=== PATIENT | female | born 1950 | race Caucasian/White ===

== ENCOUNTER 2018-04-27 07:16 | Emergency (ER) | payer MEDICARE, MEDICAID, OTHER ==
[~2018-04-27] VITALS: Ht 165.1 cm; Wt 119.0 kg
[~2018-04-27 07:16] MED LIST: ASPI-1158 PO; COR25 PO; FLOV44 IH; FLUT60LO3 TP; LANTUS SQ; NOVOLOG; OMEP20CA10 PO; SIMVASTATIN PO
[2018-04-27] MEDS ORDERED: FURO40TA5 PO (07:32)
[2018-04-27] MEDS ORDERED: HYDR12.529 PO (07:32)
[2018-04-27] MEDS ORDERED: CEFU500T41 PO (07:32)
[2018-04-27] MEDS ORDERED: BENZ200C52 PO (07:32)
[2018-04-27] MEDS ORDERED: TAP5 PO (07:32)
[2018-04-27] MEDS ORDERED: FLOV11 IH (07:32)
[2018-04-27] MEDS ORDERED: TOLT2TAB2 PO (07:32)
[2018-04-27] MEDS ORDERED: MONT10TA24 PO (07:32)
[2018-04-27] MEDS ORDERED: LOSA100T14 PO (07:32)
[2018-04-27] MEDS ORDERED: DESI25TA16 PO (07:32)
[2018-04-27 08:23] LABS: BASOPHILS % 0.6 % (0.0-2.0); EOSINOPHILS % 1.8 % (0.0-5.0); HEMATOCRIT. 36.3 % (36.0-48.0); LYMPHOCYTES % 20.2 % (20.0-50.0); MEAN CORPUSCULAR HEMOGLOBIN 27.6 pg (28.0-32.0); MEAN CORPUSCULAR VOLUME 83.3 fL (81.0-99.0); MEAN PLATELET VOLUME 7.3 fl (7.4-10.4); MONOCYTES % 11.7 % (2.0-8.0); NEUTROPHILS % 65.7 % (40.0-76.0); PLATELET 236 x1000/uL (130-400); RED BLOOD CELL COUNT 4.37 mill/uL (4.2-5.4); RED CELL DISTRIBUTION WIDTH 14.9 % (11.6-14.6)
[2018-04-27 08:27] LABS: CLARITY URINE CLEAR (CLEAR); COLOR URINE YELLOW (YELLOW); KETONES URINE NEGATIVE (NEGATIVE); LEUKOCYTE ESTERASE URINE TRACE (NEGATIVE); NITRITE URINE NEGATIVE (NEGATIVE); OCCULT BLOOD URINE NEGATIVE (NEGATIVE); PROTEIN URINE NEGATIVE (NEGATIVE); SPECIFIC GRAVITY URINE 1.004 (1.005-1.030); UROBILINOGEN URINE 0.2 E.U./dL (0.2-1.0)
[2018-04-27 08:29] LABS: CHLORIDE 96 mEq/L (98-107)
[2018-04-27] MEDS ORDERED: KETOROLAC 30MG/ML VIAL IV ONE (08:30)
[2018-04-27] MEDS ORDERED: TRAMADOL 50MG TABLET PO ONE (08:30)
[2018-04-27 12:48] VITALS: BP 156/73
== END 2018-04-27 13:01 | disposition home or self-care (01) ==
LOC: ER 07:36
DX: R10.12 Left upper quadrant pain (principal); I11.0 Hypertensive heart disease with heart failure; I50.9 Heart failure, unspecified; I25.2 Old myocardial infarction; E11.9 Type 2 diabetes mellitus without complications; J45.909 Unspecified asthma, uncomplicated; E78.00 Pure hypercholesterolemia, unspecified; N28.9 Disorder of kidney and ureter, unspecified; E05.90 Thyrotoxicosis, unspecified without thyrotoxic crisis or storm; H40.9 Unspecified glaucoma; R16.0 Hepatomegaly, not elsewhere classified; E87.1 Hypo-osmolality and hyponatremia; Z88.1 Allergy status to other antibiotic agents; Z88.0 Allergy status to penicillin; Z88.6 Allergy status to analgesic agent; Z79.899 Other long term (current) drug therapy; Z90.49 Acquired absence of other specified parts of digestive tract; Z98.890 Other specified postprocedural states
CPT/HCPCS: 36415; 71045; 80053; 81003; 83690; 84484; 85025; 93005; 96374; 99285; J1885

== ENCOUNTER 2018-10-25 12:08 | Emergency (ER) | payer MEDICARE, MEDICAID, OTHER ==
[~2018-10-25] VITALS: Ht 165.1 cm; Wt 110.0 kg
[~2018-10-25 12:08] MED LIST changes: +BENZ200C52 PO; +CEFU500T41 PO; +DESI25TA16 PO; +FLOV11 IH; +FURO40TA5 PO; +HYDR12.529 PO; +LOSA100T14 PO; +MONT10TA24 PO; +TAP5 PO; +TOLT2TAB2 PO
[2018-10-25 12:18] VITALS: BP 139/53
== END 2018-10-25 15:48 | disposition left against medical advice (07) ==
LOC: ER 12:56
DX: Z53.21 Procedure and treatment not carried out due to patient leaving prior to being seen by health care provider (principal); E11.9 Type 2 diabetes mellitus without complications; E78.00 Pure hypercholesterolemia, unspecified; I10 Essential (primary) hypertension; Z88.0 Allergy status to penicillin; Z88.1 Allergy status to other antibiotic agents; Z88.3 Allergy status to other anti-infective agents; Z88.8 Allergy status to other drugs, medicaments and biological substances; Z90.49 Acquired absence of other specified parts of digestive tract
CPT/HCPCS: 82962

== ENCOUNTER 2020-12-07 15:36 | Inpatient (IN) | payer MEDICARE, MEDICAID ==
[~2020-12-07] VITALS: Ht 162.6 cm; Wt 118.0 kg
[2020-12-07 15:36] VITALS: BP 138/69
[~2020-12-07 15:36] MED LIST changes: -ASPI-1158 PO; +ASPI-1406 PO; -BENZ200C52 PO; -CEFU500T41 PO; -COR25 PO; +COR6 PO; -DESI25TA16 PO; +FLONASE BOTHNSTRLS; -FLOV11 IH; -FLUT60LO3 TP; +FURO20TA4 PO; -FURO40TA5 PO; -LANTUS SQ; -LOSA100T14 PO; -MONT10TA24 PO; +MONT10TA32 MT; -NOVOLOG; -OMEP20CA10 PO; +OMEP20CA14 PO; +SIMV-43 PO; -SIMVASTATIN PO; -TAP5 PO; -TOLT2TAB2 PO
[2020-12-07 16:00] VITALS: BP 138/69
[2020-12-07] MEDS ORDERED: DEXTROSE 50% WATER 50ML SYRINGE IV PRN (17:00)
[2020-12-07] MEDS ORDERED: CLONIDINE 0.1MG TABLET PO PRN (17:00)
[2020-12-07] MEDS ORDERED: MAGNESIUM/ALUMINUM HYDROXIDE/SIMETHICONE 30ML UDC PO PRN (17:00)
[2020-12-07] MEDS ORDERED: HYDROCODONE/ACETAMINOPHEN 10/325MG TABLET PO PRN ×2 (17:00)
[2020-12-07] MEDS ORDERED: DOCUSATE SODIUM 100MG CAPSULE PO PRN (17:00)
[2020-12-07] MEDS ORDERED: ACETAMINOPHEN 325MG TABLET PO PRN ×2 (17:00)
[2020-12-07] MEDS ORDERED: NITROGLYCERIN 0.4MG TABLET SL SL PRN (17:00)
[2020-12-07] MEDS ORDERED: ONDANSETRON HCL 4MG/2ML INJ IV PRN (17:00)
[2020-12-07] MEDS: INSULIN LISPRO 100 UNITS/ML SUBCUT SCH ×2 (17:30→21:24)
[2020-12-07] MEDS: BLOOD SUGAR DIAGNOSTIC STRIP TEST SCH ×2 (17:30→21:13)
[2020-12-07] MEDS ORDERED: LEVOFLOXACIN 500MG PREMIX 100 ML IV SCH (18:00)
[2020-12-07] MEDS: GUAIFENESIN 200MG/10ML SUGAR FREE UDC PO PRN ×2 (18:41→23:58)
[2020-12-07 20:00] VITALS: BP 133/46
[2020-12-07] MEDS: ATORVASTATIN CALCIUM 20MG TABLET PO SCH (21:11)
[2020-12-07] MEDS: FAMOTIDINE 20MG TABLET PO SCH (21:12)
[2020-12-07] MEDS: ASCORBIC ACID 500 MG TABLET PO SCH (21:12)
[2020-12-07] MEDS: CARVEDILOL 12.5MG TABLET PO SCH (21:12)
[2020-12-07] MEDS: ENOXAPARIN 30MG/0.3ML SYR SUBCUT SCH (21:22)
[2020-12-08] MEDS: BLOOD SUGAR DIAGNOSTIC STRIP TEST SCH ×4 (06:04→20:06)
[2020-12-08] MEDS: INSULIN LISPRO 100 UNITS/ML SUBCUT SCH ×4 (06:11→21:08)
[2020-12-08 06:30] LABS: BASOPHILS % 0.4 % (0.0-2.0); EOSINOPHILS % 4.5 % (0.0-5.0); HEMATOCRIT. 32.8 % (36.0-48.0); HEMOGLOBIN. 11.2 g/dL (12.0-16.0); LYMPHOCYTES % 31.9 % (20.0-50.0); MEAN CORPUSCULAR HEMOGLOBIN 28.1 pg (28.0-32.0); MEAN CORPUSCULAR VOLUME 82.5 fL (81.0-99.0); MEAN PLATELET VOLUME 7.3 fl (7.4-10.4); MONOCYTES % 10.8 % (2.0-8.0); NEUTROPHILS % 52.4 % (40.0-76.0); PLATELET 179 x1000/uL (130-400); RED BLOOD CELL COUNT 3.97 mill/uL (4.2-5.4); RED CELL DISTRIBUTION WIDTH 15.1 % (11.6-14.6)
[2020-12-08 06:42] LABS: CHLORIDE 105 mEq/L (98-107)
[2020-12-08 08:11] VITALS: BP 158/71
[2020-12-08] MEDS: ASCORBIC ACID 500 MG TABLET PO SCH ×2 (08:49→20:03)
[2020-12-08] MEDS: ASPIRIN 325MG EC TABLET PO SCH (08:49)
[2020-12-08] MEDS: CARVEDILOL 12.5MG TABLET PO SCH ×2 (08:50→20:03)
[2020-12-08] MEDS: ZINC SULFATE 220 MG ( 50 ) CAPSULE PO SCH (08:51)
[2020-12-08] MEDS: FAMOTIDINE 20MG TABLET PO SCH ×2 (08:51→20:03)
[2020-12-08] MEDS: CHOLECALCIFEROL (D3) 1000 UNIT TABLET PO SCH (08:51)
[2020-12-08] MEDS: ENOXAPARIN 30MG/0.3ML SYR SUBCUT SCH ×2 (08:56→21:08)
[2020-12-08] MEDS: LIDOCAINE 5% PATCH TOP SCH (08:57)
[2020-12-08] MEDS: DOCUSATE SODIUM 100MG CAPSULE PO SCH ×2 (08:58→09:41)
[2020-12-08] MEDS: TRAMADOL 50MG TABLET PO PRN (11:42)
[2020-12-08] MEDS ORDERED: MAGNESIUM/ALUMINUM HYDROXIDE/SIMETHICONE 30ML UDC PO PRN (12:45)
[2020-12-08] MEDS ORDERED: HYDROCODONE/ACETAMINOPHEN 10/325MG TABLET PO PRN (12:45)
[2020-12-08] MEDS ORDERED: ACETAMINOPHEN 325MG TABLET PO PRN (12:45)
[2020-12-08] MEDS: HYDROCODONE/ACETAMINOPHEN 10/325MG TABLET PO PRN (13:46)
[2020-12-08] MEDS ORDERED: BISACODYL 10MG SUPP PR PRN (18:45)
[2020-12-08 20:00] VITALS: BP 141/65
[2020-12-08] MEDS: ATORVASTATIN CALCIUM 20MG TABLET PO SCH (20:03)
[2020-12-08] MEDS: ACETAMINOPHEN 325MG TABLET PO PRN (20:04)
[2020-12-08] MEDS: GUAIFENESIN 200MG/10ML SUGAR FREE UDC PO PRN (21:08)
[2020-12-08] MEDS ORDERED: LACTULOSE 20G/30ML UDC PO SCH (22:00)
[2020-12-08] MEDS: ZOLPIDEM TARTRATE 5MG TABLET PO PRN (23:23)
[2020-12-09] MEDS: GUAIFENESIN 200MG/10ML SUGAR FREE UDC PO PRN ×2 (05:25→09:40)
[2020-12-09] MEDS: BLOOD SUGAR DIAGNOSTIC STRIP TEST SCH ×4 (05:45→20:35)
[2020-12-09] MEDS: INSULIN LISPRO 100 UNITS/ML SUBCUT SCH ×4 (06:35→21:52)
[2020-12-09 08:00] VITALS: BP 114/44
[2020-12-09] MEDS: CHOLECALCIFEROL (D3) 1000 UNIT TABLET PO SCH (09:25)
[2020-12-09] MEDS: FAMOTIDINE 20MG TABLET PO SCH ×2 (09:26→20:35)
[2020-12-09] MEDS: ZINC SULFATE 220 MG ( 50 ) CAPSULE PO SCH (09:26)
[2020-12-09] MEDS: CARVEDILOL 12.5MG TABLET PO SCH ×2 (09:26→20:35)
[2020-12-09] MEDS: DOCUSATE SODIUM 100MG CAPSULE PO SCH (09:26)
[2020-12-09] MEDS: ASCORBIC ACID 500 MG TABLET PO SCH (09:26)
[2020-12-09] MEDS: ASPIRIN 325MG EC TABLET PO SCH (09:26)
[2020-12-09] MEDS: ENOXAPARIN 30MG/0.3ML SYR SUBCUT SCH ×2 (09:27→20:36)
[2020-12-09] MEDS: LIDOCAINE 5% PATCH TOP SCH (09:28)
[2020-12-09] MEDS: TRAMADOL 50MG TABLET PO PRN (12:35)
[2020-12-09 12:44] LABS: BASOPHILS % 0.6 % (0.0-2.0); EOSINOPHILS % 3.8 % (0.0-5.0); HEMATOCRIT. 33.3 % (36.0-48.0); HEMOGLOBIN. 11.2 g/dL (12.0-16.0); MEAN CORPUSCULAR HEMOGLOBIN 27.7 pg (28.0-32.0); MEAN CORPUSCULAR VOLUME 82.8 fL (81.0-99.0); MEAN PLATELET VOLUME 6.8 fl (7.4-10.4); MONOCYTES % 11.1 % (2.0-8.0); NEUTROPHILS % 56.5 % (40.0-76.0); PLATELET 190 x1000/uL (130-400); RED BLOOD CELL COUNT 4.03 mill/uL (4.2-5.4); RED CELL DISTRIBUTION WIDTH 15.1 % (11.6-14.6)
[2020-12-09 12:56] LABS: CHLORIDE 104 mEq/L (98-107)
[2020-12-09 13:05] LABS: LDL CHOLESTEROL 30 mg/dL (5-100); TOTAL IRON BINDING CAPACITY 328 ug/dL (250-450)
[2020-12-09 13:07] LABS: HDL CHOLESTEROL 35 mg/dL (40-59)
[2020-12-09 13:17] LABS: FERRITIN 93 ng/mL (10-291)
[2020-12-09 13:18] LABS: FOLIC ACID (FOLATE) SERUM >20 ng/mL ng/mL (>5.38)
[2020-12-09 13:30] LABS: VITAMIN B12 SERUM 881 pg/mL (211-911)
[2020-12-09] MEDS: FERROUS SULFATE 325MG TABLET PO SCH (17:39)
[2020-12-09 20:00] VITALS: BP 166/75
[2020-12-09] MEDS: ATORVASTATIN CALCIUM 20MG TABLET PO SCH (20:35)
[2020-12-09 21:23] VITALS: BP 146/71
[2020-12-09] MEDS: HYDROCODONE/ACETAMINOPHEN 10/325MG TABLET PO PRN (21:23)
[2020-12-09] MEDS: ZOLPIDEM TARTRATE 5MG TABLET PO PRN (22:11)
[2020-12-10] MEDS: BLOOD SUGAR DIAGNOSTIC STRIP TEST SCH ×4 (05:58→20:22)
[2020-12-10] MEDS: INSULIN LISPRO 100 UNITS/ML SUBCUT SCH ×4 (05:58→21:09)
[2020-12-10 07:32] LABS: T4 FREE 1.76 ng/dL (0.76-1.46)
[2020-12-10 08:00] VITALS: BP 166/76
[2020-12-10] MEDS: DOCUSATE SODIUM 100MG CAPSULE PO SCH ×2 (09:30→10:39)
[2020-12-10] MEDS: CARVEDILOL 12.5MG TABLET PO SCH ×2 (09:31→20:21)
[2020-12-10] MEDS: HYDROCODONE/ACETAMINOPHEN 10/325MG TABLET PO PRN ×3 (09:34→20:23)
[2020-12-10] MEDS: ZINC SULFATE 220 MG ( 50 ) CAPSULE PO SCH (09:36)
[2020-12-10] MEDS: FERROUS SULFATE 325MG TABLET PO SCH ×3 (09:36→17:42)
[2020-12-10] MEDS: FAMOTIDINE 20MG TABLET PO SCH ×2 (09:37→20:21)
[2020-12-10] MEDS: ASCORBIC ACID 500 MG TABLET PO SCH (09:37)
[2020-12-10] MEDS: ENOXAPARIN 30MG/0.3ML SYR SUBCUT SCH ×2 (09:38→20:22)
[2020-12-10] MEDS: CHOLECALCIFEROL (D3) 1000 UNIT TABLET PO SCH (09:38)
[2020-12-10] MEDS: LIDOCAINE 5% PATCH TOP SCH (09:44)
[2020-12-10] MEDS: ASPIRIN 325MG EC TABLET PO SCH (09:45)
[2020-12-10] MEDS: SENNOSIDES/DOCUSATE SOD 8.6/50MG TABLET PO PRN (10:38)
[2020-12-10] MEDS ORDERED: NALOXONE HCL 0.4 MG/ML 1ML VIAL IV PRN (10:45)
[2020-12-10] MEDS: TRAMADOL 50MG TABLET PO PRN (10:52)
[2020-12-10] MEDS: MORPHINE SULFATE 15MG TABLET SR PO SCH ×2 (14:25→22:48)
[2020-12-10 20:00] VITALS: BP 147/62
[2020-12-10] MEDS: ATORVASTATIN CALCIUM 20MG TABLET PO SCH (20:21)
[2020-12-10] MEDS: GUAIFENESIN-DM 200MG-20MG/10ML UDC PO PRN (20:24)
[2020-12-10 22:45] VITALS: BP 133/63
[2020-12-10] MEDS: ZOLPIDEM TARTRATE 5MG TABLET PO PRN (22:47)
[2020-12-11] MEDS: BLOOD SUGAR DIAGNOSTIC STRIP TEST SCH ×4 (05:51→21:00)
[2020-12-11] MEDS: INSULIN LISPRO 100 UNITS/ML SUBCUT SCH ×4 (05:54→21:00)
[2020-12-11 08:08] VITALS: BP 136/60
[2020-12-11] MEDS: ASPIRIN 325MG EC TABLET PO SCH (09:33)
[2020-12-11] MEDS: FERROUS SULFATE 325MG TABLET PO SCH ×3 (09:33→17:00)
[2020-12-11] MEDS: ZINC SULFATE 220 MG ( 50 ) CAPSULE PO SCH (09:35)
[2020-12-11] MEDS: MORPHINE SULFATE 15MG TABLET SR PO SCH ×2 (09:35→21:00)
[2020-12-11] MEDS: FAMOTIDINE 20MG TABLET PO SCH ×2 (09:36→21:00)
[2020-12-11] MEDS: CHOLECALCIFEROL (D3) 1000 UNIT TABLET PO SCH (09:36)
[2020-12-11] MEDS: ASCORBIC ACID 500 MG TABLET PO SCH (09:36)
[2020-12-11] MEDS: ENOXAPARIN 30MG/0.3ML SYR SUBCUT SCH ×2 (09:37→21:00)
[2020-12-11] MEDS: LIDOCAINE 5% PATCH TOP SCH (09:40)
[2020-12-11] MEDS: SENNOSIDES/DOCUSATE SOD 8.6/50MG TABLET PO PRN (09:41)
[2020-12-11] MEDS: CARVEDILOL 12.5MG TABLET PO SCH ×2 (09:54→20:31)
[2020-12-11] MEDS: TRAMADOL 50MG TABLET PO PRN (15:44)
[2020-12-11 20:00] VITALS: BP 136/76
[2020-12-11] MEDS: ATORVASTATIN CALCIUM 20MG TABLET PO SCH (20:30)
[2020-12-11] MEDS: ZOLPIDEM TARTRATE 5MG TABLET PO PRN (22:55)
[2020-12-11] MEDS: GUAIFENESIN-DM 200MG-20MG/10ML UDC PO PRN (22:55)
[2020-12-12] MEDS: BLOOD SUGAR DIAGNOSTIC STRIP TEST SCH ×4 (06:30→20:59)
[2020-12-12] MEDS: INSULIN LISPRO 100 UNITS/ML SUBCUT SCH ×4 (07:13→20:59)
[2020-12-12 08:00] VITALS: BP 126/56
[2020-12-12] MEDS: ASCORBIC ACID 500 MG TABLET PO SCH (08:56)
[2020-12-12] MEDS: ZINC SULFATE 220 MG ( 50 ) CAPSULE PO SCH (08:57)
[2020-12-12] MEDS: MORPHINE SULFATE 15MG TABLET SR PO SCH ×2 (08:57→20:57)
[2020-12-12] MEDS: ASPIRIN 325MG EC TABLET PO SCH (08:58)
[2020-12-12] MEDS: FERROUS SULFATE 325MG TABLET PO SCH ×3 (08:58→17:13)
[2020-12-12] MEDS: CHOLECALCIFEROL (D3) 1000 UNIT TABLET PO SCH (08:58)
[2020-12-12] MEDS: DOCUSATE SODIUM 100MG CAPSULE PO SCH ×2 (08:58→17:13)
[2020-12-12] MEDS: CARVEDILOL 12.5MG TABLET PO SCH ×2 (08:59→20:58)
[2020-12-12] MEDS: LIDOCAINE 5% PATCH TOP SCH (09:00)
[2020-12-12] MEDS: ENOXAPARIN 30MG/0.3ML SYR SUBCUT SCH ×2 (09:01→20:56)
[2020-12-12] MEDS: FAMOTIDINE 20MG TABLET PO SCH ×2 (09:11→20:56)
[2020-12-12 09:17] LABS: BASOPHILS % 0.7 % (0.0-2.0); EOSINOPHILS % 5.6 % (0.0-5.0); HEMATOCRIT. 35.5 % (36.0-48.0); HEMOGLOBIN. 11.5 g/dL (12.0-16.0); LYMPHOCYTES % 35.3 % (20.0-50.0); MEAN CORPUSCULAR HEMOGLOBIN 27.2 pg (28.0-32.0); MEAN PLATELET VOLUME 7.9 fl (7.4-10.4); NEUTROPHILS % 46.4 % (40.0-76.0); PLATELET 204 x1000/uL (130-400); RED BLOOD CELL COUNT 4.23 mill/uL (4.2-5.4); RED CELL DISTRIBUTION WIDTH 15.4 % (11.6-14.6)
[2020-12-12 09:24] LABS: CHLORIDE 102 mEq/L (98-107)
[2020-12-12] MEDS: ACETAMINOPHEN 325MG TABLET PO PRN (10:40)
[2020-12-12] MEDS: LACTULOSE 20G/30ML UDC PO SCH ×2 (17:18→20:56)
[2020-12-12 20:00] VITALS: BP 148/71
[2020-12-12] MEDS: ATORVASTATIN CALCIUM 20MG TABLET PO SCH (20:56)
[2020-12-12] MEDS: POLYETHYLENE GLYCOL 3350 (17GM) 1 DOSE PACK PO SCH (20:57)
[2020-12-12] MEDS: GUAIFENESIN-DM 200MG-20MG/10ML UDC PO PRN (22:17)
[2020-12-12] MEDS: ZOLPIDEM TARTRATE 5MG TABLET PO PRN (22:17)
[2020-12-13] MEDS: BLOOD SUGAR DIAGNOSTIC STRIP TEST SCH ×4 (06:59→20:55)
[2020-12-13 07:36] VITALS: BP 114/47
[2020-12-13] MEDS: FERROUS SULFATE 325MG TABLET PO SCH ×3 (08:55→16:19)
[2020-12-13] MEDS: ASPIRIN 325MG EC TABLET PO SCH (08:55)
[2020-12-13] MEDS: LACTULOSE 20G/30ML UDC PO SCH (08:55)
[2020-12-13] MEDS: DOCUSATE SODIUM 100MG CAPSULE PO SCH ×2 (08:56→16:19)
[2020-12-13] MEDS: CHOLECALCIFEROL (D3) 1000 UNIT TABLET PO SCH (08:56)
[2020-12-13] MEDS: FAMOTIDINE 20MG TABLET PO SCH ×2 (08:57→20:42)
[2020-12-13] MEDS: CARVEDILOL 12.5MG TABLET PO SCH ×2 (08:57→20:46)
[2020-12-13] MEDS: ZINC SULFATE 220 MG ( 50 ) CAPSULE PO SCH (08:57)
[2020-12-13] MEDS: ASCORBIC ACID 500 MG TABLET PO SCH (08:57)
[2020-12-13] MEDS: MORPHINE SULFATE 15MG TABLET SR PO SCH ×2 (08:57→20:43)
[2020-12-13] MEDS: LIDOCAINE 5% PATCH TOP SCH (08:58)
[2020-12-13] MEDS: ENOXAPARIN 30MG/0.3ML SYR SUBCUT SCH ×2 (08:58→20:52)
[2020-12-13] MEDS: INSULIN LISPRO 100 UNITS/ML SUBCUT SCH ×4 (09:00→20:54)
[2020-12-13] MEDS ORDERED: THROAT LOZENGES-BENZOCAINE/MENTH/CETYLPYRD CL LOZENGES MM PRN (15:30)
[2020-12-13 17:06] LABS: 25-HYDROXY VITAMIN D3 19 ng/mL (.)
[2020-12-13 20:00] VITALS: BP 153/72
[2020-12-13] MEDS: ATORVASTATIN CALCIUM 20MG TABLET PO SCH (20:46)
[2020-12-13] MEDS: POLYETHYLENE GLYCOL 3350 (17GM) 1 DOSE PACK PO SCH (20:48)
[2020-12-13] MEDS: ZOLPIDEM TARTRATE 5MG TABLET PO PRN (21:55)
[2020-12-14] MEDS: BLOOD SUGAR DIAGNOSTIC STRIP TEST SCH ×4 (06:21→20:42)
[2020-12-14] MEDS: ASCORBIC ACID 500 MG TABLET PO SCH (08:02)
[2020-12-14] MEDS: FAMOTIDINE 20MG TABLET PO SCH ×2 (08:02→20:19)
[2020-12-14] MEDS: ASPIRIN 325MG EC TABLET PO SCH (08:02)
[2020-12-14] MEDS: FERROUS SULFATE 325MG TABLET PO SCH ×3 (08:02→17:00)
[2020-12-14] MEDS: CHOLECALCIFEROL (D3) 1000 UNIT TABLET PO SCH (08:02)
[2020-12-14] MEDS: DOCUSATE SODIUM 100MG CAPSULE PO SCH ×2 (08:02→17:00)
[2020-12-14] MEDS: ZINC SULFATE 220 MG ( 50 ) CAPSULE PO SCH (08:02)
[2020-12-14] MEDS: MORPHINE SULFATE 15MG TABLET SR PO SCH ×2 (08:03→20:18)
[2020-12-14] MEDS: CARVEDILOL 12.5MG TABLET PO SCH ×2 (08:04→20:20)
[2020-12-14] MEDS: ENOXAPARIN 30MG/0.3ML SYR SUBCUT SCH ×2 (08:05→20:50)
[2020-12-14] MEDS: LIDOCAINE 5% PATCH TOP SCH (08:05)
[2020-12-14] MEDS: INSULIN LISPRO 100 UNITS/ML SUBCUT SCH ×7 (08:06→20:40)
[2020-12-14 08:07] VITALS: BP 154/73
[2020-12-14] MEDS ORDERED: INSULIN LISPRO 100 UNITS/ML SUBCUT SCH (08:15)
[2020-12-14 20:00] VITALS: BP 147/73
[2020-12-14] MEDS: ATORVASTATIN CALCIUM 20MG TABLET PO SCH (20:17)
[2020-12-14] MEDS: ZOLPIDEM TARTRATE 5MG TABLET PO PRN (20:19)
[2020-12-14] MEDS: POLYETHYLENE GLYCOL 3350 (17GM) 1 DOSE PACK PO SCH (20:20)
[2020-12-15] MEDS: BLOOD SUGAR DIAGNOSTIC STRIP TEST SCH ×4 (06:30→20:10)
[2020-12-15] MEDS: INSULIN LISPRO 100 UNITS/ML SUBCUT SCH ×7 (07:55→21:12)
[2020-12-15 08:00] VITALS: BP 138/77
[2020-12-15] MEDS: ENOXAPARIN 30MG/0.3ML SYR SUBCUT SCH ×2 (08:37→20:07)
[2020-12-15] MEDS: DOCUSATE SODIUM 100MG CAPSULE PO SCH ×2 (08:38→16:32)
[2020-12-15] MEDS: ZINC SULFATE 220 MG ( 50 ) CAPSULE PO SCH (08:38)
[2020-12-15] MEDS: FERROUS SULFATE 325MG TABLET PO SCH ×3 (08:38→16:32)
[2020-12-15] MEDS: ASCORBIC ACID 500 MG TABLET PO SCH (08:38)
[2020-12-15] MEDS: ASPIRIN 325MG EC TABLET PO SCH (08:38)
[2020-12-15] MEDS: FAMOTIDINE 20MG TABLET PO SCH ×2 (08:38→20:07)
[2020-12-15] MEDS: CHOLECALCIFEROL (D3) 1000 UNIT TABLET PO SCH (08:38)
[2020-12-15] MEDS: MORPHINE SULFATE 15MG TABLET SR PO SCH (08:39)
[2020-12-15] MEDS: CARVEDILOL 12.5MG TABLET PO SCH ×2 (08:39→20:06)
[2020-12-15] MEDS: LIDOCAINE 5% PATCH TOP SCH (08:45)
[2020-12-15 20:00] VITALS: BP 163/80
[2020-12-15 20:06] VITALS: BP 131/71
[2020-12-15] MEDS: ATORVASTATIN CALCIUM 20MG TABLET PO SCH (20:06)
[2020-12-15] MEDS: POLYETHYLENE GLYCOL 3350 (17GM) 1 DOSE PACK PO SCH (20:07)
[2020-12-15] MEDS: ZOLPIDEM TARTRATE 5MG TABLET PO PRN (20:58)
[2020-12-15] MEDS: ACETAMINOPHEN 325MG TABLET PO PRN (20:58)
[2020-12-15] MEDS ORDERED: INSULIN GLARGINE UD 100 UNITS/ML SYR SUBCUT SCH (22:00)
[2020-12-16] MEDS: BLOOD SUGAR DIAGNOSTIC STRIP TEST SCH (05:46)
[2020-12-16] MEDS: INSULIN LISPRO 100 UNITS/ML SUBCUT SCH ×2 (07:04)
[2020-12-16 07:49] VITALS: BP 142/82
[2020-12-16 08:00] VITALS: BP 151/67
[2020-12-16] MEDS: FERROUS SULFATE 325MG TABLET PO SCH (08:40)
[2020-12-16] MEDS: ASCORBIC ACID 500 MG TABLET PO SCH (08:40)
[2020-12-16] MEDS: ZINC SULFATE 220 MG ( 50 ) CAPSULE PO SCH (08:40)
[2020-12-16] MEDS: CARVEDILOL 12.5MG TABLET PO SCH (08:40)
[2020-12-16] MEDS: DOCUSATE SODIUM 100MG CAPSULE PO SCH (08:40)
[2020-12-16] MEDS: ASPIRIN 325MG EC TABLET PO SCH (08:40)
[2020-12-16] MEDS: FAMOTIDINE 20MG TABLET PO SCH (08:40)
[2020-12-16] MEDS: CHOLECALCIFEROL (D3) 1000 UNIT TABLET PO SCH (08:40)
[2020-12-16 08:42] VITALS: BP 151/67
[2020-12-16] MEDS: LIDOCAINE 5% PATCH TOP SCH (08:42)
[2020-12-16] MEDS: ENOXAPARIN 30MG/0.3ML SYR SUBCUT SCH (08:45)
[2020-12-16] MEDS ORDERED: METHIMAZOLE 5MG TABLET PO SCH (09:00)
[2020-12-16 09:04] LABS: HEMATOCRIT. 32.7 % (36.0-48.0); HEMOGLOBIN. 10.7 g/dL (12.0-16.0); MEAN CORPUSCULAR HEMOGLOBIN 27.3 pg (28.0-32.0); MEAN CORPUSCULAR VOLUME 83.6 fL (81.0-99.0); PLATELET 188 x1000/uL (130-400); RED BLOOD CELL COUNT 3.91 mill/uL (4.2-5.4); RED CELL DISTRIBUTION WIDTH 15.5 % (11.6-14.6)
[2020-12-16 09:12] LABS: CHLORIDE 107 mEq/L (98-107)
[2020-12-16 09:21] LABS: T4 FREE 2.06 ng/dL (0.76-1.46)
[2020-12-16 11:00] LABS: HEPATITIS B SURFACE ANTIGEN NEGATIVE
[2020-12-16 11:30] LABS: HEPATITIS A AB IGM NEGATIVE (NEGATIVE)
[2020-12-16 16:01] LABS: PLATELET ESTIMATE NORMAL
== END 2020-12-16 09:55 | disposition home health service (06) | DRG 183 ==
PROVIDERS: ADMIT Physical Medicine & Rehabilitation Spinal Cord Injury Medicine; ATTEND Internal Medicine
DX: S22.41XA Multiple fractures of ribs, right side, initial encounter for closed fracture (principal); E43 Unspecified severe protein-calorie malnutrition; E87.1 Hypo-osmolality and hyponatremia; I42.9 Cardiomyopathy, unspecified; Z68.41 Body mass index [BMI] 40.0-44.9, adult; M48.02 Spinal stenosis, cervical region; E66.01 Morbid (severe) obesity due to excess calories; I11.0 Hypertensive heart disease with heart failure; I50.9 Heart failure, unspecified; S09.90XA Unspecified injury of head, initial encounter; W06.XXXA Fall from bed, initial encounter; D50.9 Iron deficiency anemia, unspecified; D63.8 Anemia in other chronic diseases classified elsewhere; E05.90 Thyrotoxicosis, unspecified without thyrotoxic crisis or storm; E55.9 Vitamin D deficiency, unspecified; E78.00 Pure hypercholesterolemia, unspecified; E78.5 Hyperlipidemia, unspecified; F39 Unspecified mood [affective] disorder; E11.42 Type 2 diabetes mellitus with diabetic polyneuropathy; M47.812 Spondylosis without myelopathy or radiculopathy, cervical region; I25.2 Old myocardial infarction; I49.3 Ventricular premature depolarization; J45.909 Unspecified asthma, uncomplicated; Z79.4 Long term (current) use of insulin; Z80.0 Family history of malignant neoplasm of digestive organs; Z82.49 Family history of ischemic heart disease and other diseases of the circulatory system; Z83.3 Family history of diabetes mellitus; Z87.891 Personal history of nicotine dependence; Y93.89 Activity, other specified; Y92.89 Other specified places as the place of occurrence of the external cause; Y99.8 Other external cause status; Z68.30 Body mass index [BMI] 30.0-30.9, adult; R53.81 Other malaise; Z90.49 Acquired absence of other specified parts of digestive tract; R94.5 Abnormal results of liver function studies; I70.8 Atherosclerosis of other arteries; D17.9 Benign lipomatous neoplasm, unspecified
CPT/HCPCS: 36415; 78014; 80048; 80053; 80061; 80076; 82306; 82533; 82607; 82728; 82746; 82962; 83036; 83520; 83540; 83550; 84134; 84439; 84443; 84481; 85025; 86705; 86709; 86803; 87340; 93970; 97110; 97112; 97116; 97162; 97166; 97530; 97535; A9516; J1650; J1815; J1956

== ENCOUNTER 2021-06-09 21:08 | Emergency (ER) | payer MEDICARE, MEDICAID ==
[~2021-06-09] VITALS: Ht 165.1 cm; Wt 114.0 kg
[2021-06-09 21:20] VITALS: BP 5/5
== END 2021-06-10 01:17 | disposition left against medical advice (07) ==
LOC: ER 21:08
DX: Z53.21 Procedure and treatment not carried out due to patient leaving prior to being seen by health care provider (principal); E11.9 Type 2 diabetes mellitus without complications; I11.9 Hypertensive heart disease without heart failure; Z88.0 Allergy status to penicillin; Z88.3 Allergy status to other anti-infective agents; Z88.8 Allergy status to other drugs, medicaments and biological substances; Z95.0 Presence of cardiac pacemaker; Z90.49 Acquired absence of other specified parts of digestive tract; Z98.890 Other specified postprocedural states
CPT/HCPCS: 93005

== ENCOUNTER 2021-06-26 03:59 | Emergency (ER) | payer MEDICARE, MEDICAID ==
[~2021-06-26] VITALS: Ht 167.6 cm; Wt 115.0 kg
[2021-06-26] MEDS ORDERED: ONDANSETRON HCL 4MG/2ML INJ IV ONE (05:15)
[2021-06-26 05:44] LABS: BASOPHILS % 0.5 % (0.0-2.0); HEMATOCRIT. 35.1 % (36.0-48.0); HEMOGLOBIN. 11.5 g/dL (12.0-16.0); LYMPHOCYTES % 24.3 % (20.0-50.0); MEAN CORPUSCULAR HEMOGLOBIN 27.1 pg (28.0-32.0); MEAN CORPUSCULAR VOLUME 82.3 fL (81.0-99.0); MEAN PLATELET VOLUME 7.3 fl (7.4-10.4); MONOCYTES % 9.9 % (2.0-8.0); NEUTROPHILS % 62.3 % (40.0-76.0); PLATELET 196 x1000/uL (130-400); RED BLOOD CELL COUNT 4.26 mill/uL (4.2-5.4); RED CELL DISTRIBUTION WIDTH 15.2 % (11.6-14.6)
[2021-06-26 05:46] LABS: CHLORIDE 97 mEq/L (98-107)
[2021-06-26 06:36] LABS: CLARITY URINE CLEAR (CLEAR); COLOR URINE YELLOW (YELLOW); KETONES URINE NEGATIVE (NEGATIVE); LEUKOCYTE ESTERASE URINE NEGATIVE (NEGATIVE); NITRITE URINE NEGATIVE (NEGATIVE); OCCULT BLOOD URINE NEGATIVE (NEGATIVE); PH URINE 8.5 (4.5-8.0); PROTEIN URINE NEGATIVE (NEGATIVE); SPECIFIC GRAVITY URINE 1.005 (1.005-1.030)
[2021-06-26] MEDS ORDERED: POLY17PO3 PO (08:22)
[2021-06-26] MEDS ORDERED: TOPUD PO (08:25)
[2021-06-26] MEDS ORDERED: KETOROLAC 30MG/ML VIAL IV ONE (08:30)
[2021-06-26] MEDS ORDERED: LACTULOSE 20G/30ML UDC PO ONE (08:30)
[2021-06-26 09:58] VITALS: BP 149/57
== END 2021-06-26 10:00 | disposition home or self-care (01) ==
LOC: ER 03:59
DX: R10.32 Left lower quadrant pain (principal); E11.9 Type 2 diabetes mellitus without complications; I10 Essential (primary) hypertension; Z88.8 Allergy status to other drugs, medicaments and biological substances; Z79.82 Long term (current) use of aspirin; Z88.0 Allergy status to penicillin
CPT/HCPCS: 36415; 74176; 80053; 81003; 83690; 85025; 96374; 96375; 99285; J1885; J2405

== ENCOUNTER 2022-03-07 09:25 | Emergency (ER) | payer MEDICARE, MEDICAID ==
[~2022-03-07] VITALS: Ht 160 cm; Wt 80.0 kg
[~2022-03-07 09:25] MED LIST changes: +MONT-39 MT; -MONT10TA32 MT; +POLY17PO3 PO; +TOPUD PO
[2022-03-07 09:36] VITALS: BP 129/49
[2022-03-07 12:36] LABS: CLARITY URINE CLEAR (CLEAR); COLOR URINE YELLOW (YELLOW); KETONES URINE NEGATIVE (NEGATIVE); LEUKOCYTE ESTERASE URINE 1+ (NEGATIVE); NITRITE URINE NEGATIVE (NEGATIVE); OCCULT BLOOD URINE NEGATIVE (NEGATIVE); PROTEIN URINE NEGATIVE (NEGATIVE); SPECIFIC GRAVITY URINE 1.009 (1.005-1.030); UROBILINOGEN URINE 0.2 E.U./dL (0.2-1.0)
[2022-03-07] MEDS ORDERED: CEPH500C2 MT ×4 (12:46→12:48)
== END 2022-03-07 13:21 | disposition left against medical advice (07) ==
LOC: ER 09:25
DX: R30.9 Painful micturition, unspecified (principal); E11.9 Type 2 diabetes mellitus without complications; I10 Essential (primary) hypertension; Z88.0 Allergy status to penicillin; Z88.1 Allergy status to other antibiotic agents; Z88.3 Allergy status to other anti-infective agents; Z88.8 Allergy status to other drugs, medicaments and biological substances
CPT/HCPCS: 81003; 99283

== ENCOUNTER → 2022-05-29 | Day surgery (SDC) | payer MEDICARE, MEDICAID ==
[~2022-05-29] VITALS: Ht 167.6 cm; Wt 96.2 kg
[~2022-05-29] MED LIST changes: +ACETAMINOPHEN 325MG TABLET PO PRN; +ASPIRIN/SOD BICARB/CITRIC ACID 324MG TAB EFF ONE; +ATROPINE SULFATE 1MG/10ML SYR IV PRN; +EMPA25TA PO; +FENTANYL CITRATE/PF 50MCG/ML 2ML VIAL ONE; +HEPARIN 1000 UNITS/ML 10ML ONE; +INSU100C6 SQ; +IODIXANOL 320MG/ML 100 ML BOTTLE IV ONE; +LEVO5TAB13 PO; +LIDOCAINE HCL/PF 1% 10 MG/ML 5ML VIAL ONE; +MIDAZOLAM HCL 2 MG/2 ML VIAL ONE; +MORPHINE SULFATE 2 MG/ML CPJ (NOT FOR IM USE) IV PRN; +ONDANSETRON HCL 4MG/2ML INJ IV PRN; +POTA-205 PO
== END | disposition home or self-care (01) ==
LOC: CCL 06:55
PROVIDERS: ATTEND Specialist
DX: I25.10 Atherosclerotic heart disease of native coronary artery without angina pectoris (principal); I42.9 Cardiomyopathy, unspecified; I10 Essential (primary) hypertension; E03.9 Hypothyroidism, unspecified; E78.5 Hyperlipidemia, unspecified; E11.9 Type 2 diabetes mellitus without complications; I25.2 Old myocardial infarction; Z79.84 Long term (current) use of oral hypoglycemic drugs; Z79.899 Other long term (current) drug therapy; Z98.890 Other specified postprocedural states
CPT/HCPCS: 93458; C1769; C1887; C1893; J1644; J2250; J3010; J3490; Q9967

== ENCOUNTER 2022-06-19 11:57 | Emergency (ER) | payer MEDICARE, MEDICAID ==
[~2022-06-19] VITALS: Ht 162.6 cm; Wt 73.0 kg
[~2022-06-19 11:57] MED LIST changes: -ACETAMINOPHEN 325MG TABLET PO PRN; -ASPIRIN/SOD BICARB/CITRIC ACID 324MG TAB EFF ONE; -ATROPINE SULFATE 1MG/10ML SYR IV PRN; -COR6 PO; -FENTANYL CITRATE/PF 50MCG/ML 2ML VIAL ONE; -FLOV44 IH; -FURO20TA4 PO; -HEPARIN 1000 UNITS/ML 10ML ONE; -IODIXANOL 320MG/ML 100 ML BOTTLE IV ONE; -LIDOCAINE HCL/PF 1% 10 MG/ML 5ML VIAL ONE; -MIDAZOLAM HCL 2 MG/2 ML VIAL ONE; -MORPHINE SULFATE 2 MG/ML CPJ (NOT FOR IM USE) IV PRN; -OMEP20CA14 PO; -ONDANSETRON HCL 4MG/2ML INJ IV PRN
[2022-06-19 11:59] VITALS: BP 137/75
[2022-06-19] MEDS ORDERED: IBUP-2437 MT (13:07)
[2022-06-19] MEDS ORDERED: BENZ100C86 MT (13:07)
[2022-06-19] MEDS ORDERED: IBUPROFEN 600MG TABLET PO ONE (13:15)
== END 2022-06-19 13:41 | disposition home or self-care (01) ==
LOC: ER 11:57
DX: B34.9 Viral infection, unspecified (principal); J06.9 Acute upper respiratory infection, unspecified; E11.9 Type 2 diabetes mellitus without complications; I10 Essential (primary) hypertension; I25.2 Old myocardial infarction; R00.0 Tachycardia, unspecified; Z79.899 Other long term (current) drug therapy
CPT/HCPCS: 71045; 99283

== ENCOUNTER 2023-10-04 07:09 | Day surgery (SDC) | payer MEDICARE, MEDICAID ==
[~2023-10-04] VITALS: Ht 160 cm; Wt 92.1 kg
[~2023-10-04 07:09] MED LIST changes: -ASPI-1406 PO; +BUPIVACAINE HCL/PF 0.5% (5MG/ML) 10ML ONE; +CARV25TA47 PO; +DEXL60CA3 PO; -EMPA25TA PO; +EPINEPHRINE 1:1000 1 MG/ML AMP ONE; -FLONASE BOTHNSTRLS; +FURO20TA4 PO; -HYDR12.529 PO; +IBUP-2437 MT; -INSU100C6 SQ; -LEVO5TAB13 PO; +LIDOCAINE HCL/EPINEPHRINE 1%-EPI 1:100,000 20 ML VIAL ONE; +METH-371 PO; -POLY17PO3 PO; +SEMA2PEN SUBCUT; +VALS320T16 PO
[2023-10-04] MEDS ORDERED: CLINDAMYCIN 600MG PREMIX 50 ML IV ONE ×2 (07:25→09:35)
[2023-10-04] MEDS ORDERED: PROPOFOL 200MG/20ML VIAL IV ONE (08:36)
[2023-10-04] MEDS ORDERED: DEXAMETHASONE 4MG/ML 1ML VIAL ONE (08:37)
[2023-10-04] MEDS ORDERED: ONDANSETRON HCL 4MG/2ML INJ ONE (08:37)
[2023-10-04] MEDS ORDERED: SUCCINYLCHOLINE CHLORIDE 200MG/10ML IV ONE (08:37)
[2023-10-04] MEDS: SODIUM CHLORIDE 0.9% 1,000 ML IV SCH (08:45)
[2023-10-04 08:47] LABS: CALCIUM 8.7 mg/dL (8.7-10.4); CARBON DIOXIDE 29 mEq/L (21-32); CHLORIDE 108 mEq/L (98-107); CREATININE 0.9 mg/dL (0.6-1.0); GLUCOSE 83 mg/dL (70-105); POTASSIUM 3.6 mEq/L (3.5-5.1); SODIUM 141 mEq/L (136-145); UREA NITROGEN BLOOD 14 mg/dL (9-23)
[2023-10-04] MEDS ORDERED: MIDAZOLAM HCL 2 MG/2 ML VIAL ONE (09:21)
[2023-10-04] MEDS ORDERED: FENTANYL CITRATE/PF 50MCG/ML 2ML VIAL ONE ×2 (09:22→10:13)
[2023-10-04] MEDS ORDERED: GLYCOPYRROLATE 0.2 MG/ML 2ML VIAL ONE (09:39)
[2023-10-04] MEDS ORDERED: ROCURONIUM BROMIDE 10MG/ML VIAL 5ML IV ONE (09:40)
[2023-10-04] MEDS ORDERED: ROPIVACAINE HCL 1% 20 ML VIAL EPI ONE (09:46)
[2023-10-04] MEDS ORDERED: FENTANYL CITRATE/PF 50MCG/ML 2ML VIAL IV PRN (10:00)
[2023-10-04] MEDS ORDERED: ONDANSETRON HCL 4MG/2ML INJ IV PRN ×2 (10:00→11:00)
[2023-10-04] MEDS ORDERED: MEPERIDINE HCL/PF 25MG/ML CPJ IV PRN (10:00)
[2023-10-04] MEDS ORDERED: OXYC-100 MT (10:56)
[2023-10-04] MEDS ORDERED: HYDROCODONE/ACETAMINOPHEN 5/325MG TABLET PO PRN (11:00)
[2023-10-04] MEDS ORDERED: NALOXONE HCL 0.4MG/ML VIAL IV PRN (11:00)
[2023-10-04] MEDS ORDERED: ACETAMINOPHEN 325MG TABLET PO PRN ×2 (11:00)
[2023-10-04] MEDS ORDERED: MORPHINE SULFATE 4 MG/ML CPJ (NOT FOR IM USE) IV PRN (11:00)
[2023-10-04] MEDS: HYDROMORPHONE HCL/PF 2MG/ML CPJ IV PRN (11:45)
[2023-10-04] MEDS: KETOROLAC 30MG/ML VIAL IV PRN (12:23)
[2023-10-04 12:51] VITALS: BP 170/76; PULSE 85; RESP 19
[2023-10-04] MEDS: LORAZEPAM 2MG/ML INJ IV NR (13:17)
[2023-10-04] MEDS ORDERED: LORAZEPAM 2MG/ML INJ IV NR (13:30)
[2023-10-07] MEDS ORDERED: TRAM50TA3 MT (14:10)
== END 2023-10-04 17:30 | disposition home or self-care (01) ==
LOC: OR 07:09
DX: M75.102 Unspecified rotator cuff tear or rupture of left shoulder, not specified as traumatic (principal); S46.212A Strain of muscle, fascia and tendon of other parts of biceps, left arm, initial encounter; I10 Essential (primary) hypertension; K21.9 Gastro-esophageal reflux disease without esophagitis; E03.9 Hypothyroidism, unspecified; E78.00 Pure hypercholesterolemia, unspecified; I25.10 Atherosclerotic heart disease of native coronary artery without angina pectoris; J43.9 Emphysema, unspecified; Z86.73 Personal history of transient ischemic attack (TIA), and cerebral infarction without residual deficits; Z79.899 Other long term (current) drug therapy; Z98.890 Other specified postprocedural states; Z88.0 Allergy status to penicillin; Z88.1 Allergy status to other antibiotic agents; Z88.8 Allergy status to other drugs, medicaments and biological substances; Z79.4 Long term (current) use of insulin; Z79.82 Long term (current) use of aspirin; X58.XXXA Exposure to other specified factors, initial encounter; Y93.89 Activity, other specified; Y92.89 Other specified places as the place of occurrence of the external cause; Y99.8 Other external cause status
CPT/HCPCS: 29826; 29827; 29828; 80048; 82962; 36415; J3010; J3490 ×6; J1100; J1885; J2060; J2250; J2310; J2405; J2704; J2795; J0330; J1170; A4217 ×2; Z7610 ×24; L3670; J7030; C1713; C2618

== ENCOUNTER 2024-04-01 09:54 | Inpatient (IN) | payer MEDICARE, OTHER ==
[~2024-04-01] VITALS: Ht 160 cm; Wt 90.5 kg
[~2024-04-01 09:54] MED LIST changes: -BUPIVACAINE HCL/PF 0.5% (5MG/ML) 10ML ONE; -EPINEPHRINE 1:1000 1 MG/ML AMP ONE; -LIDOCAINE HCL/EPINEPHRINE 1%-EPI 1:100,000 20 ML VIAL ONE; +LIDOCAINE HCL/EPINEPHRINE 1%-EPI 1:100,000 20ML VIAL ONE; +OXYC-100 MT; +POLYMYXIN B SULFATE 500000 UNITS/VIAL ONE; +TRAM50TA3 MT; +VANCOMYCIN HCL 1GM VIAL ONE
[2024-04-01] MEDS ORDERED: LIDOCAINE HCL INFIL ONE (10:37)
[2024-04-01] MEDS ORDERED: EPINEPHRINE INFIL ONE (10:37)
[2024-04-01] MEDS ORDERED: [UNRECOGNIZED DRUG - OTHER] INFIL ONE (10:37)
[2024-04-01] MEDS ORDERED: BUPIVACAINE HCL/PF 0.5% (5MG/ML) 10ML ONE (10:41)
[2024-04-01] MEDS ORDERED: PHENYLEPHRINE 50MG/250ML PMX 250 ML IV ONE (11:03)
[2024-04-01 11:15] LABS: HEMOGLOBIN 11.3 g/dL (12.0-16.0)
[2024-04-01] MEDS ORDERED: VANCOMYCIN HCL 1GM VIAL ONE (11:22)
[2024-04-01 11:25] LABS: POTASSIUM 4.2 mEq/L (3.5-5.1)
[2024-04-01 11:26] LABS: CALCIUM 9.4 mg/dL (8.7-10.4)
[2024-04-01] MEDS: SODIUM CHLORIDE 0.9% 1,000 ML IV SCH (11:39)
[2024-04-01] MEDS ORDERED: FENTANYL CITRATE/PF 50MCG/ML 2ML VIAL ONE ×2 (11:52→12:36)
[2024-04-01] MEDS ORDERED: HYDROMORPHONE HCL/PF 1MG/ML INJ ONE (11:52)
[2024-04-01] MEDS ORDERED: ROCURONIUM BROMIDE 10MG/ML VIAL 5ML IV ONE (11:54)
[2024-04-01] MEDS ORDERED: LIDOCAINE HCL 1% 20ML VIAL ONE (12:00)
[2024-04-01] MEDS ORDERED: GLYCOPYRROLATE 0.2 MG/ML 2ML VIAL ONE ×2 (13:24→13:52)
[2024-04-01] MEDS ORDERED: TRANEXAMIC ACID 20 ML ONE (13:34)
[2024-04-01] MEDS ORDERED: NEOSTIGMINE METHYLSULFATE 1MG/ML 10 ML VIAL ONE (13:51)
[2024-04-01] MEDS ORDERED: NALOXONE HCL 0.4MG/ML VIAL IV PRN (14:00)
[2024-04-01] MEDS ORDERED: CEFAZOLIN 1000MG PREMIX 50 ML IV SCH (14:00)
[2024-04-01] MEDS ORDERED: ACETAMINOPHEN 325MG TABLET PO PRN (14:00)
[2024-04-01] MEDS ORDERED: LABETALOL 5MG/ML 4ML INJ IV PRN (14:30)
[2024-04-01] MEDS ORDERED: HYDRALAZINE 20MG/ML VIAL IV PRN (14:30)
[2024-04-01] MEDS ORDERED: LACTATED RINGERS 1,000 ML IV SCH (14:30)
[2024-04-01] MEDS ORDERED: ATROPINE SULFATE 1MG/ML VIAL IV PRN (14:30)
[2024-04-01] MEDS ORDERED: HYDROMORPHONE HCL/PF 2MG/ML INJ IV PRN (14:30)
[2024-04-01] MEDS: HYDROMORPHONE HCL/PF 1MG/ML INJ IV PRN (14:56)
[2024-04-01 16:13] LABS: TROPONIN I HIGH SENSITIVITY 9 ng/L (3.0-34)
[2024-04-01] MEDS ORDERED: ATROPINE SULFATE 1MG/10ML SYR IV PRN (16:50)
[2024-04-01] MEDS: ONDANSETRON HCL 4MG/2ML INJ IV PRN (18:40)
[2024-04-01 20:00] VITALS: BP 116/68; PULSE 20; PULSE 98; RESP 20; TEMP 36.22512; O2SAT 97
[2024-04-01] MEDS ORDERED: CARVEDILOL 12.5MG TABLET PO SCH (21:00)
[2024-04-01] MEDS ORDERED: OMEPRAZOLE 20MG CAPSULE EXTENDED RELEASE PO SCH (21:00)
[2024-04-01] MEDS ORDERED: ATORVASTATIN CALCIUM 20MG TABLET PO SCH (21:00)
[2024-04-01] MEDS: CEFAZOLIN 1000MG PREMIX 50 ML IV SCH (22:06)
[2024-04-01] MEDS: SENNOSIDES/DOCUSATE SOD 8.6/50MG TABLET PO SCH (22:06)
[2024-04-01] MEDS: ATORVASTATIN CALCIUM 20MG TABLET PO SCH (22:07)
[2024-04-01] MEDS: METOCLOPRAMIDE HCL 10MG/2ML VIAL IV SCH (22:07)
[2024-04-01] MEDS: CARVEDILOL 12.5MG TABLET PO SCH (22:10)
[2024-04-01 22:30] VITALS: BP 116/68; PULSE 69; RESP 20; TEMP 36.2512
[2024-04-02] VITALS: BP 125/67; PULSE 99; RESP 20; TEMP 36.3918; O2SAT 98
[2024-04-02] MEDS ORDERED: INFLUENZA VACCINE 05/PF 0.5 ML SYRINGE IM ONE (00:15)
[2024-04-02] MEDS ORDERED: PNEUMOCOCCAL 23-VAL P-SAC VAC 0.5ML IM ONE (00:15)
[2024-04-02] MEDS: ONDANSETRON HCL 4MG/2ML INJ IV PRN (01:51)
[2024-04-02] MEDS: KETOROLAC 30MG/ML VIAL IV PRN (01:51)
[2024-04-02] MEDS: LACTATED RINGERS 1,000 ML IV SCH (01:52)
[2024-04-02 04:00] VITALS: BP 140/72; PULSE 95; RESP 20; TEMP 36.28068; O2SAT 96
[2024-04-02] MEDS: HYDROCODONE/ACETAMINOPHEN 10/325MG TABLET PO PRN (05:35)
[2024-04-02 07:34] LABS: POTASSIUM 3.9 mEq/L (3.5-5.1)
[2024-04-02 07:36] LABS: CALCIUM 8.8 mg/dL (8.7-10.4)
[2024-04-02 08:00] VITALS: BP 127/65; PULSE 92; RESP 18; TEMP 36.89184; O2SAT 97
[2024-04-02 10:11] LABS: BASOPHILS % 0.1 % (0.0-2.0); HEMATOCRIT. 37.4 % (36.0-48.0); HEMOGLOBIN. 12.2 g/dL (12.0-16.0); LYMPHOCYTES % 10.2 % (20.0-50.0); MEAN CORPUSCULAR HEMOGLOBIN 28.6 pg (28.0-32.0); MEAN CORPUSCULAR HGB CONC 32.5 g/dL (31.0-37.0); MEAN CORPUSCULAR VOLUME 87.9 fL (81.0-99.0); MEAN PLATELET VOLUME 7.9 fl (7.4-10.4); MONOCYTES % 7.8 % (2.0-8.0); NEUTROPHILS % 81.9 % (40.0-76.0); PLATELET 191 x1000/uL (130-400); RED BLOOD CELL COUNT 4.26 mill/uL (4.2-5.4); RED CELL DISTRIBUTION WIDTH 16.7 % (11.6-14.6); WHITE BLOOD COUNT 11.3 x1000/uL (4.5-11.0)
[2024-04-02] MEDS: METHIMAZOLE 5MG TABLET PO SCH (10:23)
[2024-04-02] MEDS: POTASSIUM CHLORIDE 10MEQ TABLET SR PO SCH (10:23)
[2024-04-02] MEDS: FUROSEMIDE 20MG TABLET PO SCH (10:23)
[2024-04-02] MEDS: LOSARTAN 25 MG TABLET PO SCH (10:23)
[2024-04-02 12:00] VITALS: BP 121/48; PULSE 84; RESP 20; TEMP 37.00296; O2SAT 96
[2024-04-02 16:00] VITALS: BP 130/57; PULSE 77; RESP 19; TEMP 37.00296; O2SAT 96
[2024-04-02 20:00] VITALS: BP 144/62; PULSE 81; RESP 20; TEMP 37.11408; O2SAT 100
[2024-04-02] MEDS ORDERED: PANTOPRAZOLE 40MG DR TABLET PO SCH (21:00)
[2024-04-03] VITALS: BP 153/74; PULSE 84; RESP 18; TEMP 36.55848; O2SAT 99
[2024-04-03 04:00] VITALS: BP 150/66; PULSE 81; RESP 20; TEMP 36.83628; O2SAT 100
[2024-04-03] MEDS: HYDROCODONE/ACETAMINOPHEN 5/325MG TABLET PO PRN (04:00)
[2024-04-03 07:23] LABS: CALCIUM 8.8 mg/dL (8.7-10.4); POTASSIUM 3.9 mEq/L (3.5-5.1)
[2024-04-03 07:28] LABS: CREATININE 1.1 mg/dL (0.6-1.0)
[2024-04-03 07:40] LABS: BASOPHILS % 0.2 % (0.0-2.0); EOSINOPHILS % 0.8 % (0.0-5.0); HEMATOCRIT. 35.2 % (36.0-48.0); HEMOGLOBIN. 11.5 g/dL (12.0-16.0); LYMPHOCYTES % 13.7 % (20.0-50.0); MEAN CORPUSCULAR HEMOGLOBIN 29.2 pg (28.0-32.0); MEAN CORPUSCULAR HGB CONC 32.6 g/dL (31.0-37.0); MEAN CORPUSCULAR VOLUME 89.8 fL (81.0-99.0); MONOCYTES % 9.2 % (2.0-8.0); NEUTROPHILS % 76.1 % (40.0-76.0); PLATELET 146 x1000/uL (130-400); RED BLOOD CELL COUNT 3.92 mill/uL (4.2-5.4); RED CELL DISTRIBUTION WIDTH 16.3 % (11.6-14.6); WHITE BLOOD COUNT 7.8 x1000/uL (4.5-11.0)
[2024-04-03 08:00] VITALS: BP 118/40; PULSE 83; RESP 18; TEMP 36.50292; O2SAT 94
[2024-04-03] MEDS: FAMOTIDINE 20MG TABLET PO SCH (08:58)
[2024-04-03 12:00] VITALS: BP 117/56; PULSE 77; RESP 18; TEMP 35.89176; O2SAT 97
[2024-04-03 15:21] VITALS: RESP 18
[2024-04-03 15:57] VITALS: BP 122/48; PULSE 78; TEMP 98.1; O2SAT 95
== END 2024-04-03 16:48 | DRG 483 ==
LOC: OR 09:54 → 6EST 09:55
PROVIDERS: ADMIT Internal Medicine Nephrology; ATTEND Internal Medicine Nephrology
PROC: 0RRJ00Z Replacement of Right Shoulder Joint with Reverse Ball and Socket Synthetic Substitute, Open Approach (ICD-10-PCS; principal; 2024-04-01)
DX: M19.011 Primary osteoarthritis, right shoulder (principal); I10 Essential (primary) hypertension; E05.90 Thyrotoxicosis, unspecified without thyrotoxic crisis or storm; E78.5 Hyperlipidemia, unspecified; I25.10 Atherosclerotic heart disease of native coronary artery without angina pectoris; E03.9 Hypothyroidism, unspecified; E11.9 Type 2 diabetes mellitus without complications; Z68.35 Body mass index [BMI] 35.0-35.9, adult; M17.0 Bilateral primary osteoarthritis of knee; E66.09 Other obesity due to excess calories; R53.81 Other malaise; G89.29 Other chronic pain; Z88.1 Allergy status to other antibiotic agents; Z88.0 Allergy status to penicillin; Z83.3 Family history of diabetes mellitus; Z82.49 Family history of ischemic heart disease and other diseases of the circulatory system; Z79.899 Other long term (current) drug therapy
CPT/HCPCS: 36415; 71045; 73030; 80048; 82962; 84484; 85014; 85018; 85025; 86850; 86900; 88304; 88311; 93005; 93970; 97116; 97162; 97166; 97530; 97535; J0690; J1170; J1885; J2405; J2710; J2765; J3010; J3370; J3490; J7120; C1776

== ENCOUNTER → 2024-04-30 | Outpatient (CLI) | payer MEDICARE, OTHER, MEDICAID ==
[~2024-04-30] MED LIST changes: -LIDOCAINE HCL/EPINEPHRINE 1%-EPI 1:100,000 20ML VIAL ONE; -POLYMYXIN B SULFATE 500000 UNITS/VIAL ONE; -VANCOMYCIN HCL 1GM VIAL ONE
== END | disposition home or self-care (01) ==
LOC: RAD 14:08
DX: M19.011 Primary osteoarthritis, right shoulder (principal); Z96.611 Presence of right artificial shoulder joint
CPT/HCPCS: 73030

== ENCOUNTER 2024-05-12 20:01 | Inpatient (IN) | payer MEDICARE, OTHER ==
[~2024-05-12] VITALS: Ht 165.1 cm; Wt 96.6 kg
[2024-05-12 20:00] VITALS: BP 141/69; PULSE 94; RESP 18; TEMP 37.8636; TEMP 38.28084; O2SAT 100
[~2024-05-12 20:01] MED LIST changes: -OXYC-100 MT; -TOPUD PO; -TRAM50TA3 MT
[2024-05-12] MEDS ORDERED: ACETAMINOPHEN 325MG TABLET PO PRN (20:45)
[2024-05-12] MEDS ORDERED: NALOXONE HCL 0.4MG/ML 1ML VIAL IV PRN (20:45)
[2024-05-12] MEDS ORDERED: HYDROCODONE/ACETAMINOPHEN 5/325MG TABLET PO PRN (20:45)
[2024-05-12] MEDS ORDERED: ONDANSETRON HCL 4MG/2ML INJ IV PRN (20:45)
[2024-05-12] MEDS ORDERED: NALOXONE HCL 0.4MG/ML VIAL IV PRN (21:45)
[2024-05-12] MEDS: CARVEDILOL 6.25 MG TABLET PO SCH (22:49)
[2024-05-12] MEDS: ATORVASTATIN CALCIUM 10MG TABLET PO SCH (22:51)
[2024-05-12] MEDS: SENNOSIDES/DOCUSATE SOD 8.6/50MG TABLET PO SCH (22:52)
[2024-05-12] MEDS: ZOLPIDEM TARTRATE 5MG TABLET PO PRN (23:27)
[2024-05-13 06:42] LABS: CHLORIDE 107 mEq/L (98-107); POTASSIUM 3.6 mEq/L (3.5-5.1); SODIUM 140 mEq/L (136-145)
[2024-05-13 06:44] LABS: CALCIUM 8.4 mg/dL (8.7-10.4); CARBON DIOXIDE 28 mEq/L (21-32)
[2024-05-13 06:49] LABS: CREATININE 0.6 mg/dL (0.6-1.0); GLUCOSE 92 mg/dL (70-105)
[2024-05-13 06:51] LABS: ALANINE AMINOTRANSFERASE < 7 IU/L (10-49); ALBUMIN 2.8 g/dL (3.2-4.8); ASPARTATE AMINOTRANSFERASE 16 IU/L (<34); PROTEIN TOTAL 5.3 g/dL (6.0-8.3)
[2024-05-13 06:55] LABS: BASOPHILS % 0.5 % (0.0-2.0); EOSINOPHILS % 3.7 % (0.0-5.0); HEMATOCRIT. 25.7 % (36.0-48.0); HEMOGLOBIN. 8.5 g/dL (12.0-16.0); LYMPHOCYTES % 34.5 % (20.0-50.0); MEAN CORPUSCULAR HEMOGLOBIN 29.3 pg (28.0-32.0); MEAN CORPUSCULAR HGB CONC 33.1 g/dL (31.0-37.0); MEAN CORPUSCULAR VOLUME 88.8 fL (81.0-99.0); MEAN PLATELET VOLUME 7.9 fl (7.4-10.4); MONOCYTES % 12.3 % (2.0-8.0); PLATELET 184 x1000/uL (130-400); RED BLOOD CELL COUNT 2.89 mill/uL (4.2-5.4); RED CELL DISTRIBUTION WIDTH 15.8 % (11.6-14.6); WHITE BLOOD COUNT 4.8 x1000/uL (4.5-11.0)
[2024-05-13 07:10] LABS: PREALBUMIN < 5.0 mg/dl (10.0-40.0); UREA NITROGEN BLOOD < 5 mg/dL (9-23)
[2024-05-13 08:00] VITALS: BP 147/59; PULSE 79; RESP 18; TEMP 36.00288; O2SAT 100
[2024-05-13] MEDS: ASCORBIC ACID 250 MG TABLET PO SCH (09:18)
[2024-05-13] MEDS: FERROUS SULFATE 325MG TABLET PO SCH (09:18)
[2024-05-13 20:30] VITALS: BP 132/58; PULSE 80; RESP 19; TEMP 36.3918; O2SAT 97
[2024-05-13] MEDS: MONTELUKAST SODIUM 10MG TABLET PO SCH (21:56)
[2024-05-14 07:20] LABS: BASOPHILS % 0.5 % (0.0-2.0); EOSINOPHILS % 3.9 % (0.0-5.0); HEMATOCRIT. 27.3 % (36.0-48.0); HEMOGLOBIN. 8.7 g/dL (12.0-16.0); LYMPHOCYTES % 32.1 % (20.0-50.0); MEAN CORPUSCULAR HEMOGLOBIN 28.4 pg (28.0-32.0); MEAN CORPUSCULAR VOLUME 88.9 fL (81.0-99.0); MEAN PLATELET VOLUME 7.5 fl (7.4-10.4); MONOCYTES % 13.8 % (2.0-8.0); NEUTROPHILS % 49.7 % (40.0-76.0); PLATELET 192 x1000/uL (130-400); RED BLOOD CELL COUNT 3.08 mill/uL (4.2-5.4); RED CELL DISTRIBUTION WIDTH 15.6 % (11.6-14.6); WHITE BLOOD COUNT 4.4 x1000/uL (4.5-11.0)
[2024-05-14 07:40] LABS: CARBON DIOXIDE 29 mEq/L (21-32); CHLORIDE 110 mEq/L (98-107); POTASSIUM 3.7 mEq/L (3.5-5.1); SODIUM 143 mEq/L (136-145)
[2024-05-14 07:41] LABS: CALCIUM 8.5 mg/dL (8.7-10.4)
[2024-05-14 07:43] LABS: FERRITIN 94 ng/mL (10-291)
[2024-05-14 07:44] LABS: THYROID STIMULATING HORMONE 0.12 uIU/mL (0.55-4.78); VITAMIN B12 SERUM 332 pg/mL (211-911)
[2024-05-14 07:45] LABS: CREATININE 0.6 mg/dL (0.6-1.0); GLUCOSE 96 mg/dL (70-105); IRON 34 ug/dL (50-170)
[2024-05-14 07:46] LABS: UREA NITROGEN BLOOD 7 mg/dL (9-23)
[2024-05-14 07:47] LABS: ALANINE AMINOTRANSFERASE < 7 IU/L (10-49); ALBUMIN 2.9 g/dL (3.2-4.8); ASPARTATE AMINOTRANSFERASE 19 IU/L (<34)
[2024-05-14 07:48] LABS: PROTEIN TOTAL 5.5 g/dL (6.0-8.3); TOTAL IRON BINDING CAPACITY 226 ug/dl (250-425)
[2024-05-14 08:00] VITALS: BP 151/72; PULSE 85; RESP 18; TEMP 36.22512; O2SAT 100
[2024-05-14] MEDS ORDERED: ASCORBIC ACID 500 MG TABLET PO SCH (15:00)
[2024-05-14] MEDS: CYANOCOBALAMIN 1000MCG/ML VIAL IM SCH (15:18)
[2024-05-14 20:00] VITALS: BP 131/58; PULSE 75; RESP 18; TEMP 36.6696; O2SAT 100
[2024-05-14] MEDS: ACETAMINOPHEN 325MG TABLET PO PRN (21:46)
[2024-05-15 07:24] LABS: T4 FREE 1.5 ng/dL (0.89-1.76)
[2024-05-15 08:00] VITALS: BP 140/57; PULSE 68; RESP 18; TEMP 36.16956; O2SAT 97
[2024-05-15] MEDS: ASCORBIC ACID 500 MG TABLET PO SCH (09:48)
[2024-05-15] MEDS: METHIMAZOLE 5MG TABLET PO SCH (09:48)
[2024-05-15] MEDS ORDERED: ZINC OXIDE 20% OINT 30GM TOP PRN (18:00)
[2024-05-15 20:00] VITALS: BP 146/56; PULSE 82; RESP 18; TEMP 36.61404; O2SAT 100
[2024-05-16 08:00] VITALS: BP 151/62; PULSE 83; RESP 18; TEMP 36.22512; O2SAT 98
[2024-05-16] MEDS: HYDROCODONE/ACETAMINOPHEN 5/325MG TABLET PO PRN (09:06)
[2024-05-16 20:00] VITALS: BP 139/43; PULSE 75; RESP 18; TEMP 36.22512; O2SAT 100
[2024-05-17 08:00] VITALS: BP 172/73; PULSE 83; RESP 20; TEMP 35.72508; O2SAT 96
[2024-05-17] MEDS: FAMOTIDINE 20MG TABLET PO NR (11:03)
[2024-05-17 20:00] VITALS: BP 173/70; PULSE 81; RESP 18; TEMP 36.44736; O2SAT 100
[2024-05-17] MEDS ORDERED: HYDROCODONE/ACETAMINOPHEN 5/325MG TABLET PO PRN (20:50)
[2024-05-17 21:45] VITALS: BP 137/52; PULSE 84
[2024-05-18] MEDS: FAMOTIDINE 20MG TABLET PO SCH (05:21)
[2024-05-18] MEDS ORDERED: FAMOTIDINE 20MG/2ML VIAL IV SCH (06:00)
[2024-05-18 07:19] LABS: CHLORIDE 111 mEq/L (98-107); POTASSIUM 3.4 mEq/L (3.5-5.1); SODIUM 142 mEq/L (136-145)
[2024-05-18 07:20] LABS: CALCIUM 8.7 mg/dL (8.7-10.4); CARBON DIOXIDE 27 mEq/L (21-32)
[2024-05-18 07:25] LABS: CREATININE 0.6 mg/dL (0.6-1.0); GLUCOSE 97 mg/dL (70-105); UREA NITROGEN BLOOD 6 mg/dL (9-23)
[2024-05-18 07:49] LABS: BASOPHILS % 0.5 % (0.0-2.0); EOSINOPHILS % 3.4 % (0.0-5.0); HEMATOCRIT. 26.6 % (36.0-48.0); HEMOGLOBIN. 8.7 g/dL (12.0-16.0); LYMPHOCYTES % 35.6 % (20.0-50.0); MEAN CORPUSCULAR HEMOGLOBIN 29.4 pg (28.0-32.0); MEAN CORPUSCULAR HGB CONC 32.9 g/dL (31.0-37.0); MEAN CORPUSCULAR VOLUME 89.4 fL (81.0-99.0); MEAN PLATELET VOLUME 7.7 fl (7.4-10.4); MONOCYTES % 14.3 % (2.0-8.0); NEUTROPHILS % 46.2 % (40.0-76.0); PLATELET 176 x1000/uL (130-400); RED BLOOD CELL COUNT 2.97 mill/uL (4.2-5.4); RED CELL DISTRIBUTION WIDTH 15.9 % (11.6-14.6); WHITE BLOOD COUNT 3.9 x1000/uL (4.5-11.0)
[2024-05-18 08:00] VITALS: BP 140/57; PULSE 74; RESP 18; TEMP 36.16956; O2SAT 98
[2024-05-18] MEDS: POTASSIUM CHLORIDE 20MEQ TABLET SR PO NR (17:42)
[2024-05-18 20:00] VITALS: BP 147/51; PULSE 74; RESP 18; TEMP 36.72516; O2SAT 100
[2024-05-18] MEDS: ZOLPIDEM TARTRATE 5MG TABLET PO PRN (21:32)
[2024-05-19 08:00] VITALS: BP 122/66; PULSE 77; RESP 18; TEMP 36.16956; O2SAT 100
[2024-05-19] MEDS: HYDROCODONE/ACETAMINOPHEN 5/325MG TABLET PO PRN (09:29)
[2024-05-19] MEDS: BLOOD SUGAR DIAGNOSTIC STRIP TEST SCH (09:31)
[2024-05-19] MEDS: ERGOCALCIFEROL 50000UNITS CAPSULE PO SCH (16:53)
[2024-05-19] MEDS: CLONIDINE 0.1MG TABLET PO PRN (18:05)
[2024-05-19 20:00] VITALS: BP 143/92; PULSE 65; RESP 18; TEMP 36.83628; O2SAT 98
[2024-05-20 08:00] VITALS: BP 149/42; PULSE 78; RESP 20; TEMP 36.16956; O2SAT 100
[2024-05-20] MEDS: AMLODIPINE 5MG TABLET PO SCH ×2 (09:10→20:52)
[2024-05-20] MEDS: HYDROCODONE/ACETAMINOPHEN 5/325MG TABLET PO PRN (09:13)
[2024-05-20] MEDS ORDERED: *PATIENT'S OWN MEDICATION STORAGE XX SCH (11:15)
[2024-05-20 20:00] VITALS: BP 162/68; PULSE 74; RESP 18; TEMP 36.22512; O2SAT 100
[2024-05-21 08:00] VITALS: BP 163/67; PULSE 82; RESP 18; TEMP 36.22512; O2SAT 99
[2024-05-21 15:41] LABS: T4 FREE 1.55 ng/dL (0.89-1.76)
[2024-05-21 15:42] LABS: THYROID STIMULATING HORMONE < 0.10 uIU/mL (0.55-4.78)
[2024-05-21 20:00] VITALS: BP 158/59; PULSE 71; RESP 18; TEMP 36.28068; O2SAT 96
[2024-05-22 08:00] VITALS: BP 111/48; PULSE 77; RESP 20; TEMP 36.00288; O2SAT 96
[2024-05-22] MEDS ORDERED: MONT-46 PO (10:03)
[2024-05-22] MEDS ORDERED: ASCO500C18 MT (10:05)
[2024-05-22] MEDS ORDERED: ASCO-339 PO (10:08)
[2024-05-22] MEDS ORDERED: ERGO1250 (10:11)
[2024-05-22 10:22] VITALS: BP 132/66; PULSE 80; TEMP 97.8; O2SAT 99
[2024-05-26] MEDS ORDERED: ATOR20TA65 MT (18:37)
[2024-05-26] MEDS ORDERED: FURO20TA4 MT (18:37)
[2024-05-26] MEDS ORDERED: CARV6.2548 MT (18:37)
== END 2024-05-22 10:45 | disposition home health service (06) | DRG 554 ==
PROVIDERS: ADMIT Physical Medicine & Rehabilitation Spinal Cord Injury Medicine; ATTEND Internal Medicine Nephrology
DX: M19.011 Primary osteoarthritis, right shoulder (principal); S42.291A Other displaced fracture of upper end of right humerus, initial encounter for closed fracture; E87.1 Hypo-osmolality and hyponatremia; E46 Unspecified protein-calorie malnutrition; M97.31XA Periprosthetic fracture around internal prosthetic right shoulder joint, initial encounter; Z96.611 Presence of right artificial shoulder joint; M17.0 Bilateral primary osteoarthritis of knee; I10 Essential (primary) hypertension; E05.90 Thyrotoxicosis, unspecified without thyrotoxic crisis or storm; E78.5 Hyperlipidemia, unspecified; E11.9 Type 2 diabetes mellitus without complications; I25.2 Old myocardial infarction; R53.81 Other malaise; E66.9 Obesity, unspecified; E87.6 Hypokalemia; D64.9 Anemia, unspecified; I25.10 Atherosclerotic heart disease of native coronary artery without angina pectoris; L30.4 Erythema intertrigo; E55.9 Vitamin D deficiency, unspecified; E61.1 Iron deficiency; E78.00 Pure hypercholesterolemia, unspecified; M48.061 Spinal stenosis, lumbar region without neurogenic claudication; F39 Unspecified mood [affective] disorder; W18.39XA Other fall on same level, initial encounter; G47.00 Insomnia, unspecified; E05.00 Thyrotoxicosis with diffuse goiter without thyrotoxic crisis or storm; E53.8 Deficiency of other specified B group vitamins; Z87.891 Personal history of nicotine dependence; Z88.0 Allergy status to penicillin; Z83.3 Family history of diabetes mellitus; Z82.49 Family history of ischemic heart disease and other diseases of the circulatory system; Z80.0 Family history of malignant neoplasm of digestive organs; Z88.1 Allergy status to other antibiotic agents; Z88.8 Allergy status to other drugs, medicaments and biological substances; Y93.89 Activity, other specified; Y92.89 Other specified places as the place of occurrence of the external cause; Y99.8 Other external cause status; Z68.35 Body mass index [BMI] 35.0-35.9, adult
CPT/HCPCS: 36415; 80048; 80053; 82306; 82607; 82728; 82962; 83036; 83540; 83550; 84134; 84439; 84443; 84481; 85025; 97110; 97116; 97150; 97162; 97166; 97530; 97535; A6261; J3420

== ENCOUNTER → 2024-06-04 | Outpatient (CLI) | payer MEDICARE, OTHER ==
[~2024-06-04] MED LIST changes: +ASCO500C18 MT; +ATOR20TA65 MT; -CARV25TA47 PO; +CARV6.2548 MT; -DEXL60CA3 PO; +ERGO1250; +FURO20TA4 MT; -FURO20TA4 PO; +MONT-46 PO; -POTA-205 PO; -SEMA2PEN SUBCUT; -SIMV-43 PO; -VALS320T16 PO
== END | disposition home or self-care (01) ==
LOC: RAD 09:50
DX: M19.011 Primary osteoarthritis, right shoulder (principal); Z96.611 Presence of right artificial shoulder joint
CPT/HCPCS: 73030

== ENCOUNTER 2024-09-01 17:15 | Inpatient (IN) | payer MEDICARE, OTHER ==
[~2024-09-01] VITALS: Ht 165.1 cm; Wt 86.2 kg
[~2024-09-01 17:15] MED LIST changes: -MONT-46 PO
[2024-09-01] MEDS ORDERED: NALOXONE HCL 0.4MG/ML 1ML VIAL IV PRN (17:45)
[2024-09-01] MEDS ORDERED: CLONIDINE 0.1MG TABLET PO PRN (17:45)
[2024-09-01] MEDS ORDERED: ONDANSETRON HCL 4MG/2ML INJ IV PRN (17:45)
[2024-09-01] MEDS ORDERED: MAGNESIUM/ALUMINUM HYDROXIDE/SIMETHICONE 30ML UDC PO PRN (17:45)
[2024-09-01] MEDS ORDERED: NALOXONE HCL 0.4MG/ML VIAL IV PRN (18:45)
[2024-09-01 19:00] VITALS: BP 135/73; PULSE 75; RESP 18; TEMP 37.6; O2SAT 97
[2024-09-01 20:00] VITALS: BP 155/89; PULSE 88; RESP 20; TEMP 36.5
[2024-09-01] MEDS: CARVEDILOL 6.25 MG TABLET PO SCH (20:07)
[2024-09-01] MEDS: ENOXAPARIN 40MG/0.4ML SYR SUBCUT SCH (20:07)
[2024-09-02] VITALS: PULSE 72; RESP 20; TEMP 36.4; O2SAT 100
[2024-09-02] MEDS: ACETAMINOPHEN 325MG TABLET PO PRN (00:58)
[2024-09-02 04:00] VITALS: BP 131/62; PULSE 72; RESP 20; TEMP 36.4; O2SAT 100
[2024-09-02 06:15] LABS: BASOPHILS % 0.5 % (0.0-2.0); EOSINOPHILS % 4.1 % (0.0-5.0); HEMATOCRIT. 33.2 % (36.0-48.0); HEMOGLOBIN. 11.2 g/dL (12.0-16.0); MEAN CORPUSCULAR HEMOGLOBIN 28.9 pg (28.0-32.0); MEAN CORPUSCULAR HGB CONC 33.8 g/dL (31.0-37.0); MEAN CORPUSCULAR VOLUME 85.5 fL (81.0-99.0); MEAN PLATELET VOLUME 8.2 fl (7.4-10.4); MONOCYTES % 10.4 % (2.0-8.0); PLATELET 154 x1000/uL (130-400); RED BLOOD CELL COUNT 3.88 mill/uL (4.2-5.4); RED CELL DISTRIBUTION WIDTH 15.7 % (11.6-14.6); WHITE BLOOD COUNT 7.1 x1000/uL (4.5-11.0)
[2024-09-02 06:24] LABS: CHLORIDE 108 mEq/L (98-107); POTASSIUM 3.9 mEq/L (3.5-5.1)
[2024-09-02 06:25] LABS: SODIUM 141 mEq/L (136-145)
[2024-09-02 06:26] LABS: CALCIUM 8.6 mg/dL (8.7-10.4); CARBON DIOXIDE 27 mEq/L (21-32)
[2024-09-02 06:31] LABS: CREATININE 0.7 mg/dL (0.6-1.0); GLUCOSE 94 mg/dL (70-105); UREA NITROGEN BLOOD 10 mg/dL (9-23)
[2024-09-02 06:33] LABS: ALANINE AMINOTRANSFERASE < 7 IU/L (10-49); ASPARTATE AMINOTRANSFERASE 21 IU/L (<34); BILIRUBIN TOTAL 1.2 mg/dL (0.1-1.0); PROTEIN TOTAL 5.8 g/dL (6.0-8.3)
[2024-09-02 08:00] VITALS: BP 141/61; PULSE 68; RESP 19; TEMP 36.5; O2SAT 100
[2024-09-02] MEDS: FUROSEMIDE 20MG TABLET PO SCH (09:31)
[2024-09-02] MEDS: PANTOPRAZOLE 40MG DR TABLET PO SCH (09:31)
[2024-09-02] MEDS: ATORVASTATIN CALCIUM 20MG TABLET PO SCH (09:31)
[2024-09-02] MEDS: METHIMAZOLE 5MG TABLET PO SCH (09:31)
[2024-09-02] MEDS: HYDROCODONE/ACETAMINOPHEN 5/325MG TABLET PO PRN (09:33)
[2024-09-02 20:00] VITALS: BP 148/74; PULSE 90; RESP 19; TEMP 36.6; O2SAT 98
[2024-09-02] MEDS: POLYETHYLENE GLYCOL 3350 (17GM) 1 DOSE PACK PO SCH (20:30)
[2024-09-03 07:10] LABS: BASOPHILS % 0.6 % (0.0-2.0); HEMOGLOBIN. 11.7 g/dL (12.0-16.0); LYMPHOCYTES % 39.5 % (20.0-50.0); MEAN CORPUSCULAR HEMOGLOBIN 28.3 pg (28.0-32.0); MEAN CORPUSCULAR HGB CONC 32.5 g/dL (31.0-37.0); MEAN PLATELET VOLUME 8.5 fl (7.4-10.4); MONOCYTES % 7.5 % (2.0-8.0); NEUTROPHILS % 48.4 % (40.0-76.0); PLATELET 180 x1000/uL (130-400); RED BLOOD CELL COUNT 4.14 mill/uL (4.2-5.4); RED CELL DISTRIBUTION WIDTH 15.7 % (11.6-14.6); WHITE BLOOD COUNT 6.2 x1000/uL (4.5-11.0)
[2024-09-03 07:19] LABS: CARBON DIOXIDE 29 mEq/L (21-32); CHLORIDE 104 mEq/L (98-107); POTASSIUM 3.7 mEq/L (3.5-5.1); SODIUM 141 mEq/L (136-145)
[2024-09-03 07:20] LABS: CALCIUM 8.9 mg/dL (8.7-10.4)
[2024-09-03 07:25] LABS: CREATININE 0.7 mg/dL (0.6-1.0); GLUCOSE 88 mg/dL (70-105); IRON 51 ug/dL (50-170)
[2024-09-03 07:26] LABS: UREA NITROGEN BLOOD 10 mg/dL (9-23)
[2024-09-03 07:27] LABS: THYROID STIMULATING HORMONE 1.55 uIU/mL (0.55-4.78)
[2024-09-03 07:28] LABS: TOTAL IRON BINDING CAPACITY 290 ug/dl (250-425)
[2024-09-03 07:29] LABS: FOLIC ACID (FOLATE) SERUM 11.88 ng/mL (>5.38)
[2024-09-03 07:30] LABS: FERRITIN 94 ng/mL (10-291); VITAMIN B12 SERUM 775 pg/mL (211-911)
[2024-09-03 08:00] VITALS: BP 147/65; PULSE 77; RESP 18; TEMP 35.9; O2SAT 99
[2024-09-03 20:14] VITALS: BP 109/84; PULSE 76; RESP 19; TEMP 36.9; O2SAT 98
[2024-09-04 08:33] VITALS: BP 114/61; PULSE 77; RESP 18; TEMP 36.3; O2SAT 97
[2024-09-04 10:21] VITALS: BP 132/64; PULSE 65; RESP 18; TEMP 35.9; O2SAT 95
[2024-09-04 10:35] VITALS: BP 110/61; PULSE 77; RESP 18; TEMP 36.3; O2SAT 97
[2024-09-04 20:00] VITALS: BP 144/84; PULSE 81; RESP 19; TEMP 36.5; O2SAT 100
[2024-09-04] MEDS: ATORVASTATIN CALCIUM 20MG TABLET PO SCH (21:00)
[2024-09-05 08:00] VITALS: BP 139/60; PULSE 72; RESP 18; TEMP 36.1; O2SAT 97
[2024-09-05] MEDS: ERGOCALCIFEROL 50000UNITS CAPSULE PO SCH (08:15)
[2024-09-05 20:00] VITALS: BP 148/75; PULSE 79; RESP 18; TEMP 36.7; O2SAT 99
[2024-09-05] MEDS: ZOLPIDEM TARTRATE 5MG TABLET PO PRN (21:37)
[2024-09-06 08:00] VITALS: BP 121/48; PULSE 74; RESP 20; TEMP 36.2; O2SAT 97
[2024-09-06 20:00] VITALS: BP 131/57; PULSE 72; RESP 18; TEMP 36.7; O2SAT 98
[2024-09-07 08:00] VITALS: BP 145/66; PULSE 78; RESP 20; TEMP 36.7; O2SAT 98
[2024-09-07 20:00] VITALS: BP 135/59; PULSE 75; RESP 20; TEMP 36.7; O2SAT 98
[2024-09-08 08:00] VITALS: BP 148/66; PULSE 69; RESP 18; TEMP 36.1; O2SAT 97
[2024-09-08 10:15] LABS: BASOPHILS % 0.8 % (0.0-2.0); EOSINOPHILS % 3.4 % (0.0-5.0); HEMATOCRIT. 35.9 % (36.0-48.0); HEMOGLOBIN. 11.7 g/dL (12.0-16.0); LYMPHOCYTES % 30.1 % (20.0-50.0); MEAN CORPUSCULAR HEMOGLOBIN 28.3 pg (28.0-32.0); MEAN CORPUSCULAR HGB CONC 32.4 g/dL (31.0-37.0); MEAN CORPUSCULAR VOLUME 87.2 fL (81.0-99.0); MEAN PLATELET VOLUME 8.1 fl (7.4-10.4); MONOCYTES % 11.3 % (2.0-8.0); NEUTROPHILS % 54.4 % (40.0-76.0); PLATELET 227 x1000/uL (130-400); RED BLOOD CELL COUNT 4.12 mill/uL (4.2-5.4); RED CELL DISTRIBUTION WIDTH 15.9 % (11.6-14.6); WHITE BLOOD COUNT 5.6 x1000/uL (4.5-11.0)
[2024-09-08 10:20] LABS: CHLORIDE 105 mEq/L (98-107); POTASSIUM 3.6 mEq/L (3.5-5.1); SODIUM 140 mEq/L (136-145)
[2024-09-08 10:21] LABS: CALCIUM 9.2 mg/dL (8.7-10.4); CARBON DIOXIDE 29 mEq/L (21-32)
[2024-09-08 10:26] LABS: CREATININE 0.7 mg/dL (0.6-1.0); GLUCOSE 141 mg/dL (70-105); UREA NITROGEN BLOOD 9 mg/dL (9-23)
[2024-09-08 10:28] LABS: ALANINE AMINOTRANSFERASE < 7 IU/L (10-49); ALBUMIN 3.5 g/dL (3.2-4.8); ASPARTATE AMINOTRANSFERASE 24 IU/L (<34); BILIRUBIN TOTAL 1.5 mg/dL (0.1-1.0); PROTEIN TOTAL 6.3 g/dL (6.0-8.3)
[2024-09-08 20:00] VITALS: BP 141/57; PULSE 78; RESP 18; TEMP 36.9; O2SAT 99
[2024-09-08] MEDS: GUAIFENESIN-DM 200MG-20MG/10ML UDC PO PRN (23:30)
[2024-09-09] MEDS: KETOROLAC 15MG/ML VIAL IV PRN (06:09)
[2024-09-09 08:00] VITALS: BP 141/59; PULSE 74; RESP 19; TEMP 36.1; O2SAT 98
[2024-09-09 20:00] VITALS: BP 166/71; PULSE 74; RESP 20; TEMP 36.5; O2SAT 98
[2024-09-10 08:00] VITALS: BP 138/64; PULSE 75; RESP 20; TEMP 36.1; O2SAT 99
[2024-09-10 19:38] VITALS: BP 148/72; PULSE 74; RESP 20; TEMP 36.7; O2SAT 99
[2024-09-11 08:00] VITALS: BP 147/71; PULSE 65; RESP 19; TEMP 36.3; O2SAT 100
[2024-09-11 09:08] VITALS: BP 147/71; PULSE 65; TEMP 97.3; O2SAT 100
== END 2024-09-11 10:50 | disposition home health service (06) | DRG 563 ==
PROVIDERS: ADMIT Physical Medicine & Rehabilitation Spinal Cord Injury Medicine; ATTEND Internal Medicine
DX: S82.091A Other fracture of right patella, initial encounter for closed fracture (principal); M97.11XA Periprosthetic fracture around internal prosthetic right knee joint, initial encounter; Z96.611 Presence of right artificial shoulder joint; M17.0 Bilateral primary osteoarthritis of knee; I10 Essential (primary) hypertension; E05.90 Thyrotoxicosis, unspecified without thyrotoxic crisis or storm; E78.5 Hyperlipidemia, unspecified; I25.10 Atherosclerotic heart disease of native coronary artery without angina pectoris; R53.81 Other malaise; E11.9 Type 2 diabetes mellitus without complications; E66.9 Obesity, unspecified; D64.9 Anemia, unspecified; E03.9 Hypothyroidism, unspecified; W01.0XXA Fall on same level from slipping, tripping and stumbling without subsequent striking against object, initial encounter; F41.9 Anxiety disorder, unspecified; F06.34 Mood disorder due to known physiological condition with mixed features; M19.011 Primary osteoarthritis, right shoulder; R26.89 Other abnormalities of gait and mobility; E55.9 Vitamin D deficiency, unspecified; E66.811 Obesity, class 1; M25.561 Pain in right knee; I25.2 Old myocardial infarction; Y93.89 Activity, other specified; Y92.89 Other specified places as the place of occurrence of the external cause; Y99.8 Other external cause status; Z79.899 Other long term (current) drug therapy; Z82.49 Family history of ischemic heart disease and other diseases of the circulatory system; Z83.3 Family history of diabetes mellitus; Z88.0 Allergy status to penicillin; Z88.1 Allergy status to other antibiotic agents; Z91.81 History of falling; Z68.31 Body mass index [BMI] 31.0-31.9, adult; Z88.8 Allergy status to other drugs, medicaments and biological substances
CPT/HCPCS: 36415; 80048; 80053; 82306; 82607; 82728; 82746; 83036; 83540; 83550; 84134; 84443; 85025; 97110; 97112; 97116; 97150; 97162; 97166; 97530; 97535; 97542; J1650; J1885

== ENCOUNTER → 2024-09-21 | Outpatient (CLI) | payer MEDICARE, OTHER | END | disposition home or self-care (01) | LOC: RAD 11:45 | DX: S82.091D Other fracture of right patella, subsequent encounter for closed fracture with routine healing (principal); M17.11 Unilateral primary osteoarthritis, right knee; M76.9 Unspecified enthesopathy, lower limb, excluding foot; M25.561 Pain in right knee; X58.XXXD Exposure to other specified factors, subsequent encounter | CPT/HCPCS: 73562 ==

== ENCOUNTER → 2024-11-09 | Outpatient (CLI) | payer MEDICARE, OTHER | END | disposition home or self-care (01) | LOC: RAD 10:50 | DX: S82.001D Unspecified fracture of right patella, subsequent encounter for closed fracture with routine healing (principal); S42.91XD Fracture of right shoulder girdle, part unspecified, subsequent encounter for fracture with routine healing; M19.011 Primary osteoarthritis, right shoulder; M17.0 Bilateral primary osteoarthritis of knee; M89.38 Hypertrophy of bone, other site; M76.892 Other specified enthesopathies of left lower limb, excluding foot; M76.891 Other specified enthesopathies of right lower limb, excluding foot; M85.88 Other specified disorders of bone density and structure, other site; M25.811 Other specified joint disorders, right shoulder; M25.862 Other specified joint disorders, left knee; M25.861 Other specified joint disorders, right knee; M25.562 Pain in left knee; M25.561 Pain in right knee; Z96.611 Presence of right artificial shoulder joint; X58.XXXD Exposure to other specified factors, subsequent encounter | CPT/HCPCS: 73030; 73560 ==

== ENCOUNTER 2025-04-15 14:24 | Inpatient (IN) | payer MEDICARE, OTHER ==
[~2025-04-15] VITALS: Ht 165.1 cm; Wt 89.8 kg
[~2025-04-15 14:24] MED LIST changes: -ASCO500C18 MT; -ATOR20TA65 MT; +CARV25TA47 PO; -CARV6.2548 MT; +DEXL60CA3 PO; -ERGO1250; -FURO20TA4 MT; +FURO20TA4 PO; -IBUP-2437 MT; -MONT-39 MT; +MONT-39 PO; +POTA-202 PO; +SEMA2PEN INJ; +SIMV-43 PO; +VALS320T16 PO
[2025-04-15] MEDS ORDERED: NALOXONE HCL 0.4MG/ML 1ML VIAL IV PRN (15:45)
[2025-04-15] MEDS ORDERED: ONDANSETRON HCL 4MG/2ML INJ IV PRN (15:45)
[2025-04-15 15:49] VITALS: BP 136/67; PULSE 72; RESP 16; TEMP 36.5848
[2025-04-15] MEDS: MONTELUKAST SODIUM 10MG TABLET PO SCH (17:09)
[2025-04-15 20:00] VITALS: BP 165/65; PULSE 84; RESP 19; TEMP 36.6; O2SAT 98
[2025-04-15] MEDS: SENNOSIDES/DOCUSATE SOD 8.6/50MG TABLET PO SCH (22:27)
[2025-04-15] MEDS: ASPIRIN 81MG TABLET PO SCH (22:27)
[2025-04-15] MEDS: CARVEDILOL 12.5MG TABLET PO SCH (22:28)
[2025-04-16 08:00] VITALS: BP 154/55; PULSE 73; RESP 18; TEMP 36.3; O2SAT 98
[2025-04-16] MEDS: FUROSEMIDE 20MG TABLET PO SCH (08:34)
[2025-04-16] MEDS: METHIMAZOLE 5MG TABLET PO SCH (08:35)
[2025-04-16] MEDS: POLYETHYLENE GLYCOL 3350 (17GM) 1 DOSE PACK PO SCH (08:35)
[2025-04-16] MEDS: HYDROCODONE/ACETAMINOPHEN 5/325MG TABLET PO PRN (08:46)
[2025-04-16] MEDS: ENOXAPARIN 40MG/0.4ML SYR SUBCUT SCH (10:04)
[2025-04-16 10:27] LABS: BASOPHILS % 0.4 % (0.0-2.0); EOSINOPHILS % 2.3 % (0.0-5.0); HEMATOCRIT. 30.6 % (36.0-48.0); HEMOGLOBIN. 10.1 g/dL (12.0-16.0); LYMPHOCYTES % 19.5 % (20.0-50.0); MEAN PLATELET VOLUME 8.1 fl (7.4-10.4); MONOCYTES % 10.7 % (2.0-8.0); NEUTROPHILS % 67.1 % (40.0-76.0); PLATELET 136 x1000/uL (130-400); RED BLOOD CELL COUNT 3.48 mill/uL (4.2-5.4); RED CELL DISTRIBUTION WIDTH 14.9 % (11.6-14.6)
[2025-04-16 10:47] LABS: CREATININE 0.8 mg/dL (0.6-1.0); UREA NITROGEN BLOOD 15 mg/dL (9-23)
[2025-04-16 10:49] LABS: ASPARTATE AMINOTRANSFERASE 30 IU/L (<34); BILIRUBIN TOTAL 1.9 mg/dL (0.1-1.0); PROTEIN TOTAL 5.7 g/dL (6.0-8.3)
[2025-04-16] MEDS ORDERED: DEXTROSE 50% WATER 50ML SYRINGE IV PRN (18:45)
[2025-04-16 20:00] VITALS: BP 124/57; PULSE 72; RESP 18; TEMP 37.4; O2SAT 99
[2025-04-16] MEDS: BLOOD SUGAR DIAGNOSTIC STRIP TEST SCH (20:57)
[2025-04-16] MEDS: INSULIN LISPRO 100 UNITS/ML SUBCUT SCH (21:08)
[2025-04-17 08:00] VITALS: BP 145/75; PULSE 80; RESP 19; TEMP 35.2; O2SAT 100
[2025-04-17 08:02] LABS: BASOPHILS % 0.4 % (0.0-2.0); EOSINOPHILS % 4.0 % (0.0-5.0); HEMATOCRIT. 30.6 % (36.0-48.0); HEMOGLOBIN. 10.0 g/dL (12.0-16.0); LYMPHOCYTES % 37.6 % (20.0-50.0); MEAN PLATELET VOLUME 7.9 fl (7.4-10.4); MONOCYTES % 12.0 % (2.0-8.0); NEUTROPHILS % 46.0 % (40.0-76.0); PLATELET 152 x1000/uL (130-400); RED BLOOD CELL COUNT 3.45 mill/uL (4.2-5.4); RED CELL DISTRIBUTION WIDTH 15.3 % (11.6-14.6)
[2025-04-17 08:12] LABS: CREATININE 0.8 mg/dL (0.6-1.0); PROTEIN TOTAL 5.6 g/dL (6.0-8.3); UREA NITROGEN BLOOD 16 mg/dL (9-23)
[2025-04-17 08:14] LABS: ASPARTATE AMINOTRANSFERASE 27 IU/L (<34); BILIRUBIN TOTAL 1.9 mg/dL (0.1-1.0)
[2025-04-17 08:16] LABS: FOLIC ACID (FOLATE) SERUM 9.63 ng/mL (>5.38)
[2025-04-17 08:17] LABS: VITAMIN B12 SERUM 566 pg/mL (211-911)
[2025-04-17] MEDS: LACTULOSE 20G/30ML UDC PO SCH (12:54)
[2025-04-17] MEDS: FERROUS SULFATE 325MG TABLET PO SCH (12:54)
[2025-04-17] MEDS: BISACODYL 10MG SUPP PR SCH (12:55)
[2025-04-17 20:00] VITALS: BP 117/55; PULSE 78; RESP 18; TEMP 37.9; O2SAT 100
[2025-04-17] MEDS: HYDROCODONE/ACETAMINOPHEN 5/325MG TABLET PO PRN (20:54)
[2025-04-18 07:28] LABS: CREATININE 0.7 mg/dL (0.6-1.0); UREA NITROGEN BLOOD 16 mg/dL (9-23)
[2025-04-18 08:00] VITALS: BP 145/57; PULSE 70; RESP 18; TEMP 36.8; O2SAT 99
[2025-04-18] MEDS: ASCORBIC ACID 500 MG TABLET PO SCH (09:31)
[2025-04-18 20:00] VITALS: BP 125/60; PULSE 71; RESP 20; TEMP 37.1; O2SAT 99
[2025-04-19 08:00] VITALS: BP 91/70; PULSE 68; RESP 68; TEMP 37.1; O2SAT 98
[2025-04-19] MEDS: POLYETHYLENE GLYCOL 3350 (17GM) 1 DOSE PACK PO SCH (09:00)
[2025-04-19] MEDS: ACETAMINOPHEN 325MG TABLET PO PRN (09:21)
[2025-04-19 20:00] VITALS: BP 145/72; PULSE 72; RESP 18; TEMP 36.1; O2SAT 98
[2025-04-20 08:00] VITALS: BP 150/68; PULSE 69; RESP 18; TEMP 36.4; O2SAT 100
[2025-04-20] MEDS: ERGOCALCIFEROL 50000UNITS CAPSULE PO SCH (17:13)
[2025-04-20] MEDS ORDERED: HYDROCODONE/ACETAMINOPHEN 5/325MG TABLET PO PRN (19:15)
[2025-04-20] MEDS ORDERED: NALOXONE HCL 0.4MG/ML VIAL IV PRN (19:30)
[2025-04-20 20:00] VITALS: BP 128/67; PULSE 69; RESP 20; TEMP 36.6; O2SAT 97
[2025-04-20] MEDS: HYDROCODONE/ACETAMINOPHEN 5/325MG TABLET PO PRN (23:50)
[2025-04-21 08:00] VITALS: BP 117/50; PULSE 75; RESP 17; TEMP 36.6; O2SAT 98
[2025-04-21] MEDS: HYDROCODONE/ACETAMINOPHEN 5/325MG TABLET PO PRN (10:23)
[2025-04-21 20:00] VITALS: BP 117/68; PULSE 70; RESP 20; TEMP 37.6; O2SAT 99
[2025-04-22 08:00] VITALS: BP 142/64; PULSE 66; RESP 20; TEMP 36.4; O2SAT 98
[2025-04-22 20:00] VITALS: BP 164/65; PULSE 71; RESP 18; TEMP 36.6; O2SAT 99
[2025-04-22] MEDS: LACTULOSE 20G/30ML UDC PO SCH (20:00)
[2025-04-22] MEDS: CLONIDINE 0.1MG TABLET PO PRN (20:32)
[2025-04-23 08:00] VITALS: BP 118/44; PULSE 62; RESP 17; TEMP 36.7; O2SAT 99
[2025-04-23] MEDS ORDERED: FERR-63 PO (10:27)
[2025-04-23] MEDS ORDERED: FURO20TA4 PO (10:27)
[2025-04-23] MEDS ORDERED: ASPI-1406 MT (10:27)
[2025-04-23] MEDS ORDERED: ASCO500T20 PO (10:27)
[2025-04-23] MEDS ORDERED: COR12 PO (10:27)
[2025-04-23] MEDS ORDERED: POLY17PO43 PO (10:27)
[2025-04-23] MEDS ORDERED: SENN1TAB35 PO (10:27)
[2025-04-23 11:42] VITALS: BP 122/72; PULSE 66; RESP 18; TEMP 97.9
[2025-04-26] MEDS ORDERED: HYDR-4001 MT (13:16)
== END 2025-04-23 12:50 | disposition home health service (06) | DRG 561 ==
PROVIDERS: ADMIT Physical Medicine & Rehabilitation Spinal Cord Injury Medicine; ATTEND Internal Medicine
DX: Z47.1 Aftercare following joint replacement surgery (principal); I10 Essential (primary) hypertension; E11.9 Type 2 diabetes mellitus without complications; E05.90 Thyrotoxicosis, unspecified without thyrotoxic crisis or storm; D50.9 Iron deficiency anemia, unspecified; E78.5 Hyperlipidemia, unspecified; E66.811 Obesity, class 1; Z68.33 Body mass index [BMI] 33.0-33.9, adult; E03.9 Hypothyroidism, unspecified; E55.9 Vitamin D deficiency, unspecified; F32.A Depression, unspecified; I25.10 Atherosclerotic heart disease of native coronary artery without angina pectoris; Z96.611 Presence of right artificial shoulder joint; Z96.652 Presence of left artificial knee joint; R53.81 Other malaise; M19.011 Primary osteoarthritis, right shoulder; I25.2 Old myocardial infarction; Z79.4 Long term (current) use of insulin; Z79.82 Long term (current) use of aspirin; Z79.899 Other long term (current) drug therapy; Z82.49 Family history of ischemic heart disease and other diseases of the circulatory system; Z83.3 Family history of diabetes mellitus; Z88.0 Allergy status to penicillin; Z88.1 Allergy status to other antibiotic agents; Z91.81 History of falling
CPT/HCPCS: 36415; 80048; 80053; 82140; 82306; 82607; 82728; 82746; 82962; 83036; 83540; 83550; 84134; 84443; 85025; 97110; 97116; 97162; 97166; 97530; 97535; 97542; A4606; A6449; J1650; J1815

== ENCOUNTER → 2025-06-07 | Outpatient (CLI) | payer MEDICARE, MEDICAID ==
[~2025-06-07] MED LIST changes: +ASCO500T20 PO; +ASPI-1406 MT; -CARV25TA47 PO; +COR12 PO; +FERR-63 PO; +POLY17PO43 PO; +SENN1TAB35 PO; +TRAM50TA3 MT; -VALS320T16 PO
== END | disposition home or self-care (01) ==
LOC: RAD 09:28
DX: M17.0 Bilateral primary osteoarthritis of knee (principal); M25.761 Osteophyte, right knee; M25.861 Other specified joint disorders, right knee; Z96.652 Presence of left artificial knee joint
CPT/HCPCS: 73562